=== PATIENT | female | born 1965 | race Caucasian/White ===

== ENCOUNTER 2016-11-17 10:38 | Emergency (ER) | payer OTHER, BC ==
[~2016-11-17] VITALS: Ht 175.3 cm; Wt 152.0 kg
[~2016-11-17 10:38] MED LIST: ACTOS15 MG PO; ALDACTONE50 MG PO; ANCEF,KEFZ1 GM/50 ML IV; ANCEF,KEFZ2 GM/100 M IV; ASACOL400 MG PO; Buspar PO; COZAAR100 MG PO; CRANBERRY500 M2 PO; CYSTEX TABLET1 EAC1 PO; ESTRING1 EACH VG; FEMRING1 EACH VG; FENOFIBRATE145 M1 PO; GABAPENTIN300 MG PO; GLUCOPHAGE1000 MG PO; Glucophage XR,Fortam PO; HUMALOG100 UNIT/1 SC; HUMULIN R500 UNITS/ SC; HYZAAR 100-21 TABLET PO; LANTUS 3 M100 UNITS1 SC; LASIX40 MG PO; LEVOTHROID200 MCG PO; LEVOTHYROXINE175 MCG PO; LEXAPRO20 MG PO; LOPRESSOR100 M1 PO; LOPRESSOR50 MG PO; LOSARTAN-HCTZ PO; LOSARTAN-HCTZ1 EAC1 PO; Levothroid,Synthroid PO; Lopressor PO; METOPROLOL TAR100 MG PO; NEURONTIN100 MG PO; NEURONTIN300 MG PO; NORCO 5/3251 TABLET PO; NOVOLOG 70/30 SQ; OMEPRAZOLE DR; PRED FORTE100 DROP/5 RIGHT EYE; PREDNISOLONE AC15 ML RIGHT EYE; PROAIR HFA8.5 GM IH; PROTONIX40 MG PO; SPIRONOLACTONE100 MG PO; SYNTHROID175 MCG PO; TRICOR145 MG PO; TRICOR48 MG PO; VALTREX50 MG/ML PO; VENTOLIN HFA18 GM IH; VITAMIN D5000 UNIT PO; Victoza SC; Vitamin D PO
[2016-11-17 11:14] LABS: POINT-OF-CARE METER ID UU13113778
[2016-11-17 11:49] LABS: EOSINOPHIL (%) 2.2 % (0-5); EOSINOPHIL COUNT 0.2 K/uL (0-0.3); HEMATOCRIT 39.8 % (36.0-46.0); IMMATURE GRANULOCYTE (%) 0.3 % (0.0-0.7); IMMATURE GRANULOCYTE COUNT 0.3 K/uL; LYMPHOCYTE COUNT 1.8 K/uL (1.0-2.8); MCH 28.6 PG (29.0-34.0); MCHC 34.7 G/DL (30.0-36.0); MCV 82.6 FL (83-99); MEAN PLAT.VOLUME 11.8 uM^3 (9.5-12.4); MONOCYTE (%) 6.3 % (3-12); MONOCYTE COUNT 0.6 K/uL (0-0.8); NEUTROPHIL (%) 71.2 % (45-76); NEUTROPHIL COUNT 6.5 K/uL (1.8-6.4); PLATELET COUNT 238 K/uL (156-360); RBC DIS.WIDTH-CV 14.6 % (11.8-14.6); RBC DIS.WIDTH-SD 42.8 % (39-53); RED BLOOD COUNT 4.82 M/uL (3.80-5.20); WHITE BLOOD COUNT 9.1 K/uL (4.1-10.2)
[2016-11-17 11:53] LABS: CARBON DIOXIDE (BICARBONATE) 32.9 MEQ/L (20-31)
[2016-11-17 12:15] LABS: ANION GAP 8 MEQ/L (2-14); CHLORIDE 97 MEQ/L (99-109); DIRECT BILIRUBIN 0.2 mg/dL (0.0-0.3); POTASSIUM 4.1 MEQ/L (3.7-5.4); SAMPLE HEMOLYSIS CHECK 0; SAMPLE ICTERIC CHECK 0; SAMPLE LIPEMIA CHECK 0; SODIUM 136 MEQ/L (136-147); TOTAL BILIRUBIN 0.7 MG/DL (0.0-1.0)
[2016-11-17 12:21] LABS: ALKALINE PHOSPHATASE 53 IU/L (3-129); GFR ESTIMATE (CALCULATED) 55 mL/min/; GLUCOSE 260 mg/dL (70-99); LIPASE 78 U/L (1.0-51.0); UREA NITROGEN (BUN) 28 mg/dL (9-23)
[2016-11-17 12:24] LABS: ADD MIUA? YES; BILIRUBIN NEGATIVE; BLOOD NEGATIVE; COLOR YELLOW ((YELLOW)); GLUCOSE (STRIP) >=500; KETONES NEGATIVE; LEUKOCYTES TRACE; NITRITE NEGATIVE; PROTEIN (STRIP) NEGATIVE; UROBILINOGEN 0.2 MG/DL (0.2-1.0)
[2016-11-17 12:32] LABS: AMPHETAMINE NEGATIVE (500 ng/mL); BACTERIA RARE /HPF; BARBITURATES NEGATIVE (200 ng/mL); BENZODIAZEPINES NEGATIVE (150 ng/mL); COCAINE NEGATIVE (150 ng/mL); EPITHELIAL CELLS 1+ /HPF; INTERNAL CONTROLS VALID? YES; METHADONE NEGATIVE (200 ng/mL); METHAMPHETAMINE NEGATIVE (500 ng/mL); MUCUS TRACE /LPF; OPIATES (MORPHINE) NEGATIVE (100 ng/mL); OXYCODONE NEGATIVE (100 ng/mL); PHENCYCLIDINE NEGATIVE (25 ng/mL); PROPOXYPHENE NEGATIVE (300 ng/mL); RED BLOOD CELLS NONE SEEN /HPF (0-5); THC CANNABINOIDS NEGATIVE (50 ng/mL); TRICYCLIC ANTIDEPRESSANTS NEGATIVE (300 ng/mL); UCUL ADDED? NO
[2016-11-17] MEDS ORDERED: ZOFRAN4 MG PO (12:50)
[2016-11-17 14:00] LABS: POINT-OF-CARE METER ID UU14100415
[2016-11-17 14:12] VITALS: BP 125/80
== END 2016-11-17 14:12 | disposition home or self-care (01) ==
LOC: EME 10:38
PROVIDERS: Emergency Medicine
DX: E86.0 Dehydration (principal); R11.10 Vomiting, unspecified; E11.65 Type 2 diabetes mellitus with hyperglycemia; I10 Essential (primary) hypertension; E03.9 Hypothyroidism, unspecified; N28.9 Disorder of kidney and ureter, unspecified; Z88.1 Allergy status to other antibiotic agents; Z88.6 Allergy status to analgesic agent; Z88.0 Allergy status to penicillin; Z91.041 Radiographic dye allergy status
CPT/HCPCS: 80048; 80076; 81003; 82803; 82948; 83690; 85025; 99281; 99285; J7030

== ENCOUNTER → 2016-12-16 | Outpatient (CLI) | payer OTHER, BC ==
[~2016-12-16] VITALS: Ht 176.5 cm; Wt 146.5 kg
[~2016-12-16] MED LIST changes: +COZAAR50 MG PO; +ELAVIL25 MG PO; +HUMALOG KW200 UNIT/1 SC; +JARDIANCE25 MG PO; +TRESIBA FL200 UNIT/1 SC; +ZOFRAN4 MG PO
[2016-12-16 07:50] LABS: POINT-OF-CARE METER ID UU13113694
== END | disposition home or self-care (01) ==
LOC: AMB 11-18 07:30
PROVIDERS: Internal Medicine
DX: K63.3 Ulcer of intestine (principal); D17.5 Benign lipomatous neoplasm of intra-abdominal organs; K64.8 Other hemorrhoids; K62.5 Hemorrhage of anus and rectum; E11.9 Type 2 diabetes mellitus without complications; I10 Essential (primary) hypertension
CPT/HCPCS: 82948; 88305; 93005; J2250

== ENCOUNTER 2017-04-30 19:09 | Inpatient (IN) | payer OTHER, BC ==
[~2017-04-30] VITALS: Ht 176.5 cm; Wt 159.2 kg
[~2017-04-30 19:09] MED LIST changes: +ALDACTONE100 MG PO
[2017-04-30 19:41] LABS: HEMATOCRIT 37.7 % (36.0-46.0); MCH 28.1 PG (29.0-34.0); MCHC 32.9 G/DL (30.0-36.0); MCV 85.3 FL (83-99); MEAN PLAT.VOLUME 11.8 uM^3 (9.5-12.4); PLATELET COUNT 147 K/uL (156-360); RBC DIS.WIDTH-CV 14.8 % (11.8-14.6); RBC DIS.WIDTH-SD 46.5 % (39-53); RED BLOOD COUNT 4.42 M/uL (3.80-5.20); WHITE BLOOD COUNT 14.7 K/uL (4.1-10.2)
[2017-04-30 19:49] LABS: CHLORIDE 92 mEq/L (99-109); POTASSIUM 3.7 mEq/L (3.7-5.4); SODIUM 132 mEq/L (136-147)
[2017-04-30 19:52] LABS: GLUCOSE 249 mg/dL (70-99)
[2017-04-30 19:53] LABS: ANION GAP 14 MEQ/L (2-14)
[2017-04-30 19:54] LABS: TOTAL BILIRUBIN 1.6 mg/dL (0.0-1.0)
[2017-04-30 19:55] LABS: ALKALINE PHOSPHATASE 55 IU/L (3-129); GFR ESTIMATE (CALCULATED) 39 mL/min/
[2017-04-30 19:56] LABS: UREA NITROGEN (BUN) 21 mg/dL (9-23)
[2017-04-30] MEDS ORDERED: ESTRING1 EACH VG (21:41)
[2017-05-01] VITALS (8 sets, daily range): BP systolic 102–126; BP diastolic 49–69
[2017-05-01 05:25] LABS: HEMATOCRIT 34.4 % (36.0-46.0); MCH 28.7 PG (29.0-34.0); MCHC 33.4 G/DL (30.0-36.0); MCV 85.8 FL (83-99); RBC DIS.WIDTH-CV 15.3 % (11.8-14.6); RBC DIS.WIDTH-SD 48.3 % (39-53); RED BLOOD COUNT 4.01 M/uL (3.80-5.20); WHITE BLOOD COUNT 11.7 K/uL (4.1-10.2)
[2017-05-01 05:51] LABS: ANION GAP 12 MEQ/L (2-14); CHLORIDE 98 MEQ/L (99-109); GFR ESTIMATE (CALCULATED) 39 mL/min/; POTASSIUM 3.2 MEQ/L (3.7-5.4); SAMPLE HEMOLYSIS CHECK 0; SAMPLE ICTERIC CHECK 0; SAMPLE LIPEMIA CHECK 0; SODIUM 135 MEQ/L (136-147); UREA NITROGEN (BUN) 25 mg/dL (9-23)
[2017-05-01 06:16] LABS: GLUCOSE 112 mg/dL (70-99)
[2017-05-01 07:18] LABS: ABS NEUTROPHIL COUNT 10.9; ANISOCYTOSIS 1+; EOSINOPHIL ABS CT 0; INSTRUMENT ABS NEUTROPHIL CT 10.6 K/uL; MEAN PLAT.VOLUME ND uM^3 (9.5-12.4); PLAT.SUFFICIENCY ADEQUATE; PLATELET CLUMPS PRESENT - PLATELET COUNT APPEARS ADQ.
[2017-05-01 08:55] LABS: MAGNESIUM 1.3 mg/dl (1.3-2.7)
[2017-05-01 10:53] LABS: ADD MIUA? YES; BILIRUBIN NEGATIVE; BLOOD LARGE; COLOR AMBER ((YELLOW)); GLUCOSE (STRIP) >=500; KETONES NEGATIVE; LEUKOCYTES MODERATE; NITRITE NEGATIVE; PROTEIN (STRIP) 100; SPECIFIC GRAVITY 1.023 (1.000-1.030)
[2017-05-01 11:10] LABS: BACTERIA 3+ /HPF; CASTS NONE SEEN /LPF; CRYSTALS NONE SEEN; EPITHELIAL CELLS 3+ /HPF; MUCUS RARE /LPF; WHITE BLOOD CELLS TNTC /HPF (0-5)
[2017-05-01 11:30] LABS: POINT-OF-CARE METER ID UU13113698
[2017-05-01 20:56] LABS: POINT-OF-CARE METER ID UU13113698
[2017-05-02 03:17] VITALS: BP 127/69
[2017-05-02 05:29] LABS: MCH 27.4 PG (29.0-34.0); MCHC 32.4 G/DL (30.0-36.0); MCV 84.4 FL (83-99); MEAN PLAT.VOLUME 12.4 uM^3 (9.5-12.4); PLATELET COUNT 131 K/uL (156-360); RBC DIS.WIDTH-SD 46.4 % (39-53); RED BLOOD COUNT 3.91 M/uL (3.80-5.20); WHITE BLOOD COUNT 8.8 K/uL (4.1-10.2)
[2017-05-02 06:06] LABS: ANION GAP 10 MEQ/L (2-14); CHLORIDE 100 MEQ/L (99-109); GFR ESTIMATE (CALCULATED) 55 mL/min/; POTASSIUM 3.5 MEQ/L (3.7-5.4); SAMPLE HEMOLYSIS CHECK 0; SAMPLE ICTERIC CHECK 0; SAMPLE LIPEMIA CHECK 0; SODIUM 136 MEQ/L (136-147); UREA NITROGEN (BUN) 29 mg/dL (9-23)
[2017-05-02 06:07] LABS: GLUCOSE 77 mg/dL (70-99)
[2017-05-02 08:05] LABS: POINT-OF-CARE METER ID UU13113781
[2017-05-02 08:30] VITALS: BP 143/69
[2017-05-02 11:38] VITALS: BP 144/76
[2017-05-02 12:08] LABS: POINT-OF-CARE METER ID UU13113781
[2017-05-02 15:38] VITALS: BP 145/70
[2017-05-02 16:34] LABS: POINT-OF-CARE METER ID UU13113781
[2017-05-02 19:08] VITALS: BP 129/74
[2017-05-03] VITALS (7 sets, daily range): BP systolic 104–139; BP diastolic 60–76
[2017-05-03 05:47] LABS: BASOPHIL COUNT 0.1 K/uL (0-0.1); EOSINOPHIL (%) 0.2 % (0-5); HEMATOCRIT 34.7 % (36.0-46.0); IMMATURE GRANULOCYTE (%) 1.3 % (0.0-0.7); IMMATURE GRANULOCYTE COUNT 0.3 K/uL; LYMPHOCYTE COUNT 1.1 K/uL (1.0-2.8); MCH 27.4 PG (29.0-34.0); MCHC 31.7 G/DL (30.0-36.0); MCV 86.3 FL (83-99); MEAN PLAT.VOLUME 12.5 uM^3 (9.5-12.4); MONOCYTE (%) 4.4 % (3-12); MONOCYTE COUNT 0.9 K/uL (0-0.8); NEUTROPHIL (%) 88.1 % (45-76); PLATELET COUNT 131 K/uL (156-360); RBC DIS.WIDTH-CV 15.1 % (11.8-14.6); RBC DIS.WIDTH-SD 48.2 % (39-53); RED BLOOD COUNT 4.02 M/uL (3.80-5.20); WHITE BLOOD COUNT 19.4 K/uL (4.1-10.2)
[2017-05-03 06:19] LABS: ANION GAP 9 MEQ/L (2-14); CHLORIDE 98 MEQ/L (99-109); GFR ESTIMATE (CALCULATED) > 59 mL/min/; GLUCOSE 181 mg/dL (70-99); POTASSIUM 4.9 MEQ/L (3.7-5.4); SAMPLE HEMOLYSIS CHECK 0; SAMPLE ICTERIC CHECK 0; SAMPLE LIPEMIA CHECK 0; SODIUM 132 MEQ/L (136-147); UREA NITROGEN (BUN) 26 mg/dL (9-23)
[2017-05-03 11:43] LABS: POINT-OF-CARE METER ID UU13113803
[2017-05-03 16:38] LABS: POINT-OF-CARE METER ID UU13113803
[2017-05-04 04:28] VITALS: BP 139/77
[2017-05-04 07:13] LABS: POINT-OF-CARE METER ID UU13113803
[2017-05-04 08:21] LABS: POINT-OF-CARE USER ID ENVKC36
[2017-05-04 08:46] LABS: MCH 28.3 PG (29.0-34.0); MCHC 31.9 G/DL (30.0-36.0); MCV 88.7 FL (83-99); MEAN PLAT.VOLUME 12.1 uM^3 (9.5-12.4); NRBC (%) 0.1 /100 WBC (0-0); PLATELET COUNT 163 K/uL (156-360); RBC DIS.WIDTH-CV 15.6 % (11.8-14.6); RBC DIS.WIDTH-SD 50.8 % (39-53); RED BLOOD COUNT 4.17 M/uL (3.80-5.20); WHITE BLOOD COUNT 25.1 K/uL (4.1-10.2)
[2017-05-04 09:00] VITALS: BP 145/67
[2017-05-04 09:14] LABS: ANION GAP 8 MEQ/L (2-14); CHLORIDE 95 MEQ/L (99-109); GFR ESTIMATE (CALCULATED) 55 mL/min/; GLUCOSE 130 mg/dL (70-99); POTASSIUM 5.3 MEQ/L (3.7-5.4); SAMPLE HEMOLYSIS CHECK 0; SAMPLE ICTERIC CHECK 0; SAMPLE LIPEMIA CHECK 0; SODIUM 134 MEQ/L (136-147); UREA NITROGEN (BUN) 26 mg/dL (9-23)
[2017-05-04 09:23] LABS: MAGNESIUM 2.2 mg/dl (1.3-2.7)
[2017-05-04 09:28] LABS: COMMENTS - BLOOD GASES A+C+; DEVICE NC; O2 FLOW 4 L/MIN; PCO2 66 mm Hg (35-45); SITE RR; pH 7.27 (7.35-7.45)
[2017-05-04 09:29] LABS: BASE EXCESS 1.9 mEq/L (-3 to +3); BICARBONATE 30.3 mEq/L (22-26); CARBOXY HGB 1.6 % (0-5); HEMOGLOBIN 12 (11.9-15.5); METHEMOGLOBIN 0.6 % (0-1.5); PO2 72 mm Hg (80-100)
[2017-05-04 10:10] LABS: ABS NEUTROPHIL COUNT 22.6; EOSINOPHIL ABS CT 0.3; INSTRUMENT ABS NEUTROPHIL CT 20.8 K/uL
[2017-05-04 11:50] LABS: POINT-OF-CARE METER ID UU13113698; POINT-OF-CARE USER ID ENVKC36
[2017-05-04 12:00] VITALS: BP 131/70
[2017-05-04 12:00] LABS: ADD MIUA? YES; BILIRUBIN NEGATIVE; BLOOD SMALL; GLUCOSE (STRIP) NEGATIVE; KETONES NEGATIVE; LEUKOCYTES SMALL; NITRITE NEGATIVE; PROTEIN (STRIP) 30; SPECIFIC GRAVITY 1.014 (1.000-1.030)
[2017-05-04 12:07] LABS: COLOR DK YELLOW ((YELLOW))
[2017-05-04 12:21] LABS: BACTERIA 1+ /HPF; BUDDING YEAST 1+; EPITHELIAL CELLS RARE /HPF; HYALINE CASTS 20-30 /LPF; MUCUS TRACE /LPF; UCUL ADDED? YES; WHITE BLOOD CELLS 20-30 /HPF (0-5)
[2017-05-04 17:00] VITALS: BP 137/69
[2017-05-04 17:00] LABS: POINT-OF-CARE USER ID ENVKC36
[2017-05-04 19:55] VITALS: BP 128/60
[2017-05-04 19:55] LABS: POINT-OF-CARE METER ID UU13113803
[2017-05-04 21:58] LABS: MCV 87.1 FL (83-99)
[2017-05-04 22:31] LABS: BASE EXCESS 4.7 mEq/L (-3 to +3); BICARBONATE 31.4 mEq/L (22-26); CARBOXY HGB 2.7 % (0-5); COMMENTS - BLOOD GASES C+; METHEMOGLOBIN 1.2 % (0-1.5); O2 FLOW 3 L/MIN; PCO2 61 mm Hg (35-45); PO2 51 mm Hg (80-100); SITE RR; pH 7.32 (7.35-7.45)
[2017-05-04 22:32] LABS: DEVICE NC
[2017-05-04 22:38] VITALS: BP 111/57
[2017-05-05 02:49] VITALS: BP 139/65
[2017-05-05 04:45] LABS: HEMATOCRIT 33.7 % (36.0-46.0); MCV 86.2 FL (83-99)
[2017-05-05 08:00] VITALS: BP 123/58
[2017-05-05 08:01] LABS: POINT-OF-CARE METER ID UU13113803; POINT-OF-CARE USER ID NUTSLF44
[2017-05-05 08:47] LABS: BASE EXCESS 4.9 mEq/L (-3 to +3); BICARBONATE 31.2 mEq/L (22-26); CARBOXY HGB 1.5 % (0-5); METHEMOGLOBIN 0.9 % (0-1.5); pH 7.37 (7.35-7.45)
[2017-05-05 08:48] LABS: COMMENTS - BLOOD GASES C+; DEVICE NC; O2 FLOW 2 L/MIN; PCO2 54 mm Hg (35-45); PO2 65 mm Hg (80-100); SITE RR; TOTAL RESP RATE 24 resp/min
[2017-05-05 11:35] LABS: POINT-OF-CARE METER ID UU13113698
[2017-05-05 12:00] VITALS: BP 132/62
[2017-05-05 17:19] LABS: POINT-OF-CARE METER ID UU13113698; POINT-OF-CARE USER ID NUTSLF44
[2017-05-05 19:00] VITALS: BP 120/65
[2017-05-05 19:18] VITALS: BP 144/65
[2017-05-05 21:06] LABS: POINT-OF-CARE METER ID UU13113803
[2017-05-05 23:10] VITALS: BP 134/68
[2017-05-06 02:55] VITALS: BP 134/61
[2017-05-06 03:00] VITALS: BP 139/75
[2017-05-06 06:28] LABS: HEMATOCRIT 38.1 % (36.0-46.0); MCH 27.2 PG (29.0-34.0); MCHC 31.2 G/DL (30.0-36.0); MCV 87.2 FL (83-99); MEAN PLAT.VOLUME 11.5 uM^3 (9.5-12.4); NRBC (%) 0.2 /100 WBC (0-0); RBC DIS.WIDTH-CV 14.8 % (11.8-14.6); RBC DIS.WIDTH-SD 47.6 % (39-53); RED BLOOD COUNT 4.37 M/uL (3.80-5.20); WHITE BLOOD COUNT 16.5 K/uL (4.1-10.2)
[2017-05-06 06:47] LABS: ANION GAP 11 MEQ/L (2-14); CHLORIDE 99 MEQ/L (99-109); POTASSIUM 5.9 MEQ/L (3.7-5.4); SAMPLE HEMOLYSIS CHECK 1; SAMPLE ICTERIC CHECK 0; SAMPLE LIPEMIA CHECK 0; SODIUM 137 MEQ/L (136-147)
[2017-05-06 06:49] LABS: PLATELET COUNT 231 K/uL (156-360)
[2017-05-06 07:07] LABS: ABS NEUTROPHIL COUNT 13.5; ANISOCYTOSIS 1+; BAND NEUTROPHILS 1.7 % (0-8.0); EOSINOPHIL ABS CT 0; INSTRUMENT ABS NEUTROPHIL CT 12.3 K/uL; LYMPHOCYTES 6.9 % (15.0-45.0); METAMYELOCYTES 2.6 %; MYELOCYTES 5.2 %; NUCLEATED RBC'S 0.9; PLAT.SUFFICIENCY ADEQUATE; SEG.NEUTROPHILS 80.2 % (46.0-76.0)
[2017-05-06 07:12] LABS: GFR ESTIMATE (CALCULATED) > 59 mL/min/; UREA NITROGEN (BUN) 36 mg/dL (9-23)
[2017-05-06 07:13] LABS: GLUCOSE 230 mg/dL (70-99)
[2017-05-06 07:18] VITALS: BP 160/73
[2017-05-06 08:32] LABS: POINT-OF-CARE METER ID UU13113781; POINT-OF-CARE USER ID ENVKC36
[2017-05-06 12:06] VITALS: BP 136/59
[2017-05-06 12:15] LABS: POINT-OF-CARE METER ID UU13113781; POINT-OF-CARE USER ID ENVKC36
[2017-05-06 16:43] LABS: POINT-OF-CARE METER ID UU13113803; POINT-OF-CARE USER ID ENVKC36
[2017-05-07] VITALS (7 sets, daily range): BP systolic 130–167; BP diastolic 65–74
[2017-05-07 08:06] LABS: POINT-OF-CARE METER ID UU13113698
[2017-05-07 11:25] LABS: POINT-OF-CARE METER ID UU13113698
[2017-05-07 16:25] LABS: POINT-OF-CARE METER ID UU13113698
[2017-05-08 03:35] VITALS: BP 176/79
[2017-05-08 05:56] LABS: HEMATOCRIT 35.8 % (36.0-46.0); MCH 27.3 PG (29.0-34.0); NRBC (%) 0.1 /100 WBC (0-0); RBC DIS.WIDTH-CV 14.6 % (11.8-14.6); RBC DIS.WIDTH-SD 46.5 % (39-53); RED BLOOD COUNT 4.07 M/uL (3.80-5.20)
[2017-05-08 06:25] LABS: ABS NEUTROPHIL COUNT 14.3; BAND NEUTROPHILS 0.9 % (0-8.0); EOSINOPHIL ABS CT 0; HEMATOLOGY COMMENT 1 SN; INSTRUMENT ABS NEUTROPHIL CT 13.8 K/uL; LYMPHOCYTES 11.5 % (15.0-45.0); METAMYELOCYTES 0.9 %; MICROCYTOSIS 1+; MYELOCYTES 3.5 %; PLAT.SUFFICIENCY ADEQUATE; PLATELET CLUMPS PRESENT - PLATELET COUNT APPEARS ADQ.; PLATELET COUNT UNABLE TO REPORT K/uL (156-360); POLYCHROMASIA 1+; SEG.NEUTROPHILS 74.4 % (46.0-76.0)
[2017-05-08 07:18] VITALS: BP 151/74
[2017-05-08 07:20] LABS: ANION GAP 6 MEQ/L (2-14); CHLORIDE 98 MEQ/L (99-109); GFR ESTIMATE (CALCULATED) > 59 mL/min/; GLUCOSE 251 mg/dL (70-99); POTASSIUM 4.9 MEQ/L (3.7-5.4); SAMPLE HEMOLYSIS CHECK 0; SAMPLE ICTERIC CHECK 0; SAMPLE LIPEMIA CHECK 0; SODIUM 140 MEQ/L (136-147); UREA NITROGEN (BUN) 44 mg/dL (9-23); VANCOMYCIN, TROUGH 14.1 MCG/ML (10-20)
[2017-05-08 07:59] LABS: POINT-OF-CARE USER ID NUTSLF44
[2017-05-08 11:36] VITALS: BP 131/63
[2017-05-08 12:13] LABS: POINT-OF-CARE USER ID NUTSLF44
[2017-05-08 12:59] LABS: POINT-OF-CARE METER ID UU13113781
[2017-05-08 18:46] LABS: POINT-OF-CARE USER ID NUTSLF44
[2017-05-08 19:15] VITALS: BP 143/69
[2017-05-08 23:51] VITALS: BP 133/63
[2017-05-09 04:00] VITALS: BP 119/58
[2017-05-09 05:25] LABS: HEMATOCRIT 33.9 % (36.0-46.0); MCH 28.4 PG (29.0-34.0); MCHC 32.4 G/DL (30.0-36.0); MCV 87.4 FL (83-99); MEAN PLAT.VOLUME 10.8 uM^3 (9.5-12.4); NRBC (%) 0.1 /100 WBC (0-0); PLATELET COUNT 317 K/uL (156-360); RBC DIS.WIDTH-CV 14.5 % (11.8-14.6); RBC DIS.WIDTH-SD 45.7 % (39-53); RED BLOOD COUNT 3.88 M/uL (3.80-5.20); WHITE BLOOD COUNT 17.7 K/uL (4.1-10.2)
[2017-05-09 05:53] LABS: ALKALINE PHOSPHATASE 69 IU/L (3-129); ANION GAP 6 MEQ/L (2-14); CHLORIDE 97 MEQ/L (99-109); GFR ESTIMATE (CALCULATED) > 59 mL/min/; GLUCOSE 172 mg/dL (70-99); POTASSIUM 5.1 MEQ/L (3.7-5.4); SAMPLE HEMOLYSIS CHECK 0; SAMPLE ICTERIC CHECK 0; SAMPLE LIPEMIA CHECK 0; SODIUM 141 MEQ/L (136-147); TOTAL BILIRUBIN 0.4 MG/DL (0.0-1.0); UREA NITROGEN (BUN) 39 mg/dL (9-23)
[2017-05-09 05:54] LABS: FASTING STATUS A
[2017-05-09 06:09] LABS: ABS NEUTROPHIL COUNT 15.2; ANISOCYTOSIS 2+; ATYPICAL LYMPHOCYTE 1.7 %; BAND NEUTROPHILS 0.9 % (0-8.0); EOSINOPHIL ABS CT 0; INSTRUMENT ABS NEUTROPHIL CT 13.4 K/uL; LYMPHOCYTES 8.8 % (15.0-45.0); METAMYELOCYTES 0.9 %; PLAT.SUFFICIENCY ADEQUATE; POLYCHROMASIA 2+; SEG.NEUTROPHILS 85.1 % (46.0-76.0)
[2017-05-09 07:16] VITALS: BP 145/76
[2017-05-09 11:03] VITALS: BP 130/74
[2017-05-09 15:23] VITALS: BP 117/55
[2017-05-09 20:22] VITALS: BP 158/91
[2017-05-09 23:25] VITALS: BP 139/67
[2017-05-10 04:39] VITALS: BP 140/72
[2017-05-10 05:22] LABS: HEMATOCRIT 36.7 % (36.0-46.0); MCH 27.8 PG (29.0-34.0); MCHC 31.9 G/DL (30.0-36.0); MCV 87.2 FL (83-99); MEAN PLAT.VOLUME 10.6 uM^3 (9.5-12.4); PLATELET COUNT 287 K/uL (156-360); RBC DIS.WIDTH-CV 14.6 % (11.8-14.6); RBC DIS.WIDTH-SD 45.5 % (39-53); RED BLOOD COUNT 4.21 M/uL (3.80-5.20); WHITE BLOOD COUNT 14.2 K/uL (4.1-10.2)
[2017-05-10 05:56] LABS: ABS NEUTROPHIL COUNT 10.2; ANISOCYTOSIS 1+; ATYPICAL LYMPHOCYTE 5.3 %; BAND NEUTROPHILS 0.9 % (0-8.0); EOSINOPHIL ABS CT 0.1; EOSINOPHILS 0.9 % (0-5.0); INSTRUMENT ABS NEUTROPHIL CT 10.1 K/uL; LYMPHOCYTES 18.6 % (15.0-45.0); PLAT.SUFFICIENCY ADEQUATE; POLYCHROMASIA 1+; SEG.NEUTROPHILS 70.8 % (46.0-76.0)
[2017-05-10 05:58] LABS: ALKALINE PHOSPHATASE 73 IU/L (3-129); ANION GAP 6 MEQ/L (2-14); CHLORIDE 94 MEQ/L (99-109); GFR ESTIMATE (CALCULATED) > 59 mL/min/; GLUCOSE 178 mg/dL (70-99); POTASSIUM 4.8 MEQ/L (3.7-5.4); SAMPLE HEMOLYSIS CHECK 2; SAMPLE ICTERIC CHECK 0; SAMPLE LIPEMIA CHECK 0; SODIUM 137 MEQ/L (136-147); UREA NITROGEN (BUN) 32 mg/dL (9-23)
[2017-05-10 05:59] LABS: MAGNESIUM 1.6 mg/dl (1.3-2.7); TOTAL BILIRUBIN 0.5 MG/DL (0.0-1.0)
[2017-05-10 06:54] LABS: Estimated Average Glucose 197 mg/dL (70-123); HEMOGLOBIN A1c (GLYCOHEMOGLOB) 8.5 % HGB (Below 5.7)
[2017-05-10 07:25] VITALS: BP 149/74
[2017-05-10 11:44] VITALS: BP 107/53
[2017-05-10] MEDS ORDERED: METRONIDAZOLE500 MG PO (14:47)
[2017-05-10] MEDS ORDERED: VANCOMYCIN HCL1 GM IV (14:47)
[2017-05-10] MEDS ORDERED: LOPRESSOR50 MG PO (14:47)
[2017-05-10] MEDS ORDERED: GUAIFENESIN WI120 M1 PO (14:48)
[2017-05-10] MEDS ORDERED: CEFAZOLIN-2 GM/100 M IV (14:49)
[2017-05-10 16:40] VITALS: BP 132/63
== END 2017-05-10 17:32 | DRG 853 ==
LOC: EME → EDBD 19:09 → 4EAST 22:14 → EDOF 22:14 → ENRESERV 22:15 → 4EAST 23:27 → ENPENDDIS 05-10 17:00 → 4EAST 05-10 17:32
PROVIDERS: Emergency Medicine; Hospitalist; Internal Medicine; Internal Medicine Pulmonary Disease; Nurse Practitioner Adult Health; Physician Assistant
PROC: 5A09357 Assistance with Respiratory Ventilation, Less than 24 Consecutive Hours, Continuous Positive Airway Pressure (ICD-10-PCS; 2017-05-04)
PROC: 0HBKXZZ Excision of Right Lower Leg Skin, External Approach (ICD-10-PCS; principal; 2017-05-08)
DX: A41.89 Other specified sepsis (principal); B96.7 Clostridium perfringens [C. perfringens] as the cause of diseases classified elsewhere; L03.115 Cellulitis of right lower limb; J96.22 Acute and chronic respiratory failure with hypercapnia; J96.21 Acute and chronic respiratory failure with hypoxia; J20.9 Acute bronchitis, unspecified; J45.901 Unspecified asthma with (acute) exacerbation; E11.21 Type 2 diabetes mellitus with diabetic nephropathy; E11.42 Type 2 diabetes mellitus with diabetic polyneuropathy; E83.42 Hypomagnesemia; E87.2 Acidosis; E87.5 Hyperkalemia; E87.6 Hypokalemia; E11.621 Type 2 diabetes mellitus with foot ulcer; L97.519 Non-pressure chronic ulcer of other part of right foot with unspecified severity; N39.0 Urinary tract infection, site not specified; E66.2 Morbid (severe) obesity with alveolar hypoventilation; Z68.42 Body mass index [BMI] 45.0-49.9, adult; I27.2 Other secondary pulmonary hypertension; I27.81 Cor pulmonale (chronic); I48.91 Unspecified atrial fibrillation; I10 Essential (primary) hypertension; M79.7 Fibromyalgia; I87.2 Venous insufficiency (chronic) (peripheral); I87.8 Other specified disorders of veins; E03.9 Hypothyroidism, unspecified; E28.2 Polycystic ovarian syndrome; H91.90 Unspecified hearing loss, unspecified ear; K21.9 Gastro-esophageal reflux disease without esophagitis; K51.911 Ulcerative colitis, unspecified with rectal bleeding; K64.9 Unspecified hemorrhoids; R31.0 Gross hematuria; R32 Unspecified urinary incontinence; R23.8 Other skin changes; D64.9 Anemia, unspecified; F32.9 Major depressive disorder, single episode, unspecified; G43.909 Migraine, unspecified, not intractable, without status migrainosus; G89.29 Other chronic pain; H57.11 Ocular pain, right eye; R60.0 Localized edema; Z89.429 Acquired absence of other toe(s), unspecified side
CPT/HCPCS: 36600; 70450; 71010; 72198; 73700; 76770; 76937; 80048; 80053; 80202; 81003; 82803; 82948; 83036; 83605; 83735; 83880; 85014; 85018; 85025; 85027; 86900; 86901; 87040; 87076; 87086; 87801; 93005; 93306; 93971; 94010; 94640; 94640 76; 94660; 94760; 94799; 97530 GP; 99202; 99281; 99285; A6260; J0690; J0692; J0696; J1650; J1815; J1885; J1940; J1956; J2060; J2930; J2997; J3370; J3475; J7030; J7050; J7120; J7512; S0030

== ENCOUNTER 2017-06-15 02:14 | Inpatient (IN) | payer OTHER, BC ==
[~2017-06-15] VITALS: Ht 177.8 cm; Wt 149.0 kg
[~2017-06-15 02:14] MED LIST changes: +CEFAZOLIN-2 GM/100 M IV; +GUAIFENESIN WI120 M1 PO; +METRONIDAZOLE500 MG PO; +VANCOMYCIN HCL1 GM IV
[2017-06-15 06:12] LABS: EOSINOPHIL (%) 0 % (0-5); HEMATOCRIT 30.8 % (36.0-46.0); IMMATURE GRANULOCYTE (%) 0.5 % (0.0-0.7); IMMATURE GRANULOCYTE COUNT 0.1 K/uL; INSTRUMENT ABS NEUTROPHIL CT 10.8 K/uL; LYMPHOCYTE COUNT 1.2 K/uL (1.0-2.8); MCH 27.5 PG (29.0-34.0); MCHC 32.5 G/DL (30.0-36.0); MCV 84.6 FL (83-99); MONOCYTE (%) 7.4 % (3-12); NEUTROPHIL (%) 82.9 % (45-76); NEUTROPHIL COUNT 10.8 K/uL (1.8-6.4); RBC DIS.WIDTH-CV 16.2 % (11.8-14.6); RBC DIS.WIDTH-SD 50.1 % (39-53); RED BLOOD COUNT 3.64 M/uL (3.80-5.20)
[2017-06-15 06:15] LABS: INTER. NORMALIZED RATIO 1.5; PROTHROMBIN TIME 16.6 SEC (10.2-12.9)
[2017-06-15 06:18] LABS: CHLORIDE 93 mEq/L (99-109); POTASSIUM 3.6 mEq/L (3.7-5.4); PTT 29.9 SEC (25-37); SODIUM 133 mEq/L (136-147)
[2017-06-15 06:20] LABS: GLUCOSE 152 mg/dL (70-99)
[2017-06-15 06:21] LABS: ANION GAP 14 MEQ/L (2-14)
[2017-06-15 06:22] LABS: TOTAL BILIRUBIN 0.9 mg/dL (0.0-1.0)
[2017-06-15 06:23] LABS: ALKALINE PHOSPHATASE 53 IU/L (3-129)
[2017-06-15 06:24] LABS: GFR ESTIMATE (CALCULATED) 39 mL/min/
[2017-06-15 06:25] LABS: UREA NITROGEN (BUN) 22 mg/dL (9-23)
[2017-06-15 06:27] LABS: LIPASE 75 U/L (1.0-51.0)
[2017-06-15 06:51] LABS: MEAN PLAT.VOLUME 10.6 uM^3 (9.5-12.4); PLAT.SUFFICIENCY ADEQUATE
[2017-06-15 07:07] LABS: PLATELET COUNT 193 K/uL (156-360)
[2017-06-15] MEDS ORDERED: COZAAR50 MG PO (08:43)
[2017-06-15] MEDS ORDERED: JARDIANCE25 MG PO (08:43)
[2017-06-15] MEDS ORDERED: ALDACTONE100 MG PO (08:43)
[2017-06-15] MEDS ORDERED: B-121000 MC2 PO (08:44)
[2017-06-15] MEDS ORDERED: VITAMIN D31000 UNI2 PO (08:44)
[2017-06-15 09:15] LABS: ADD MIUA? YES; BILIRUBIN NEGATIVE; BLOOD MODERATE; COLOR AMBER ((YELLOW)); GLUCOSE (STRIP) >=500; KETONES NEGATIVE; LEUKOCYTES LARGE; NITRITE NEGATIVE; PROTEIN (STRIP) 100; SPECIFIC GRAVITY 1.023 (1.000-1.030); UROBILINOGEN 0.2 MG/DL (0.2-1.0)
[2017-06-15 09:23] LABS: BACTERIA 1+ /HPF; EPITHELIAL CELLS 1+ /HPF; HYALINE CASTS 0-5 /LPF; MUCUS TRACE /LPF; RED BLOOD CELLS 15-20 /HPF (0-5); UCUL ADDED? YES; WHITE BLOOD CELLS TNTC /HPF (0-5)
[2017-06-15 10:21] VITALS: BP 114/58
[2017-06-15 10:25] VITALS: BP 114/58
[2017-06-15 11:16] LABS: POINT-OF-CARE METER ID UU13113698
[2017-06-15 12:32] VITALS: BP 135/67
[2017-06-15 16:08] LABS: POINT-OF-CARE METER ID UU13113698
[2017-06-15 17:15] VITALS: BP 145/69
[2017-06-15 20:00] VITALS: BP 145/81
[2017-06-15 21:02] LABS: POINT-OF-CARE METER ID UU13113698
[2017-06-15 23:55] VITALS: BP 99/57
[2017-06-16 04:00] VITALS: BP 163/80
[2017-06-16 05:58] LABS: EOSINOPHIL (%) 0.3 % (0-5); HEMATOCRIT 28.7 % (36.0-46.0); IMMATURE GRANULOCYTE (%) 0.6 % (0.0-0.7); IMMATURE GRANULOCYTE COUNT 0.1 K/uL; INSTRUMENT ABS NEUTROPHIL CT 7.1 K/uL; MCH 27.3 PG (29.0-34.0); MCHC 31.7 G/DL (30.0-36.0); MCV 86.2 FL (83-99); MONOCYTE (%) 9.4 % (3-12); MONOCYTE COUNT 0.8 K/uL (0-0.8); NEUTROPHIL COUNT 7.1 K/uL (1.8-6.4); PLATELET COUNT 158 K/uL (156-360); RBC DIS.WIDTH-CV 16.4 % (11.8-14.6); RBC DIS.WIDTH-SD 51.7 % (39-53); RED BLOOD COUNT 3.33 M/uL (3.80-5.20)
[2017-06-16 06:26] LABS: ANION GAP 7 MEQ/L (2-14); CHLORIDE 100 MEQ/L (99-109); GFR ESTIMATE (CALCULATED) 46 mL/min/; GLUCOSE 116 mg/dL (70-99); SAMPLE HEMOLYSIS CHECK 0; SAMPLE ICTERIC CHECK 0; SAMPLE LIPEMIA CHECK 0; SODIUM 134 MEQ/L (136-147); UREA NITROGEN (BUN) 21 mg/dL (9-23)
[2017-06-16 06:27] LABS: POTASSIUM 4.4 MEQ/L (3.7-5.4)
[2017-06-16 08:34] VITALS: BP 157/73
[2017-06-16 11:51] VITALS: BP 134/81
[2017-06-16 17:17] VITALS: BP 122/74
[2017-06-16 19:05] VITALS: BP 183/84
[2017-06-16 23:55] VITALS: BP 134/80
[2017-06-17 03:30] VITALS: BP 140/92
[2017-06-17 07:39] VITALS: BP 146/73
[2017-06-17 07:58] LABS: POINT-OF-CARE METER ID UU13113698; POINT-OF-CARE USER ID ENVKC36
[2017-06-17 11:21] LABS: POINT-OF-CARE METER ID UU13113698; POINT-OF-CARE USER ID ENVKC36
[2017-06-17 11:46] VITALS: BP 123/60
[2017-06-17 15:52] VITALS: BP 126/65
[2017-06-17 16:33] LABS: POINT-OF-CARE METER ID UU13113698
[2017-06-17 18:06] VITALS: BP 172/70
[2017-06-17 19:26] VITALS: BP 139/72
[2017-06-17 21:47] LABS: POINT-OF-CARE METER ID UU14162508
[2017-06-18 00:32] VITALS: BP 116/63
[2017-06-18 04:06] VITALS: BP 125/76
[2017-06-18 06:25] LABS: POINT-OF-CARE METER ID UU14208750
[2017-06-18 07:50] VITALS: BP 163/76
[2017-06-18 09:48] LABS: GFR ESTIMATE (CALCULATED) > 59 mL/min/
[2017-06-18 11:37] LABS: EOSINOPHIL COUNT 0.6 K/uL (0-0.3); HEMATOCRIT 29.5 % (36.0-46.0); IMMATURE GRANULOCYTE (%) 1.6 % (0.0-0.7); IMMATURE GRANULOCYTE COUNT 0.2 K/uL; INSTRUMENT ABS NEUTROPHIL CT 9.1 K/uL; LYMPHOCYTE COUNT 1.1 K/uL (1.0-2.8); MCH 27.5 PG (29.0-34.0); MCHC 31.2 G/DL (30.0-36.0); MCV 88.3 FL (83-99); MEAN PLAT.VOLUME 12.2 uM^3 (9.5-12.4); MONOCYTE (%) 5.2 % (3-12); MONOCYTE COUNT 0.6 K/uL (0-0.8); NEUTROPHIL (%) 78.1 % (45-76); NEUTROPHIL COUNT 9.1 K/uL (1.8-6.4); RBC DIS.WIDTH-CV 16.2 % (11.8-14.6); RBC DIS.WIDTH-SD 52.6 % (39-53); RED BLOOD COUNT 3.34 M/uL (3.80-5.20); WHITE BLOOD COUNT 11.6 K/uL (4.1-10.2)
[2017-06-18 11:44] LABS: POINT-OF-CARE METER ID UU14162508
[2017-06-18 11:45] LABS: ANION GAP 11 MEQ/L (2-14); CHLORIDE 101 MEQ/L (99-109); POTASSIUM 4.5 MEQ/L (3.7-5.4); SODIUM 139 MEQ/L (136-147)
[2017-06-18 12:16] LABS: PLATELET COUNT 216 K/uL (156-360)
[2017-06-18 12:33] LABS: GLUCOSE 212 mg/dL (70-99); UREA NITROGEN (BUN) 16 mg/dL (9-23); VANCOMYCIN, TROUGH 24.7 MCG/ML (10-20)
[2017-06-18 17:18] LABS: POINT-OF-CARE METER ID UU14208750
[2017-06-18 20:03] VITALS: BP 150/96
[2017-06-18 21:50] LABS: POINT-OF-CARE METER ID UU14208750
[2017-06-18 23:45] VITALS: BP 155/86
[2017-06-19 06:09] LABS: POINT-OF-CARE METER ID UU14208750
[2017-06-19 07:38] VITALS: BP 127/58
[2017-06-19 12:07] LABS: POINT-OF-CARE METER ID UU14208750
[2017-06-19 16:02] VITALS: BP 168/77
[2017-06-19 16:16] LABS: POINT-OF-CARE METER ID UU14162508
[2017-06-19 21:53] LABS: POINT-OF-CARE METER ID UU14162508
[2017-06-20 00:50] VITALS: BP 142/69
[2017-06-20 06:48] LABS: POINT-OF-CARE METER ID UU14162508
[2017-06-20 07:18] VITALS: BP 149/73
[2017-06-20 08:14] LABS: HEMATOCRIT 29.4 % (36.0-46.0); MCH 27.4 PG (29.0-34.0); MCHC 30.6 G/DL (30.0-36.0); MCV 89.4 FL (83-99); MEAN PLAT.VOLUME 11.3 uM^3 (9.5-12.4); PLATELET COUNT 241 K/uL (156-360); RBC DIS.WIDTH-CV 16.2 % (11.8-14.6); RBC DIS.WIDTH-SD 52.8 % (39-53); RED BLOOD COUNT 3.29 M/uL (3.80-5.20); WHITE BLOOD COUNT 8.9 K/uL (4.1-10.2)
[2017-06-20 08:39] LABS: ALKALINE PHOSPHATASE 62 IU/L (3-129); ANION GAP 5 MEQ/L (2-14); CHLORIDE 102 MEQ/L (99-109); GFR ESTIMATE (CALCULATED) > 59 mL/min/; GLUCOSE 212 mg/dL (70-99); POTASSIUM 4.9 MEQ/L (3.7-5.4); SAMPLE HEMOLYSIS CHECK 0; SAMPLE ICTERIC CHECK 0; SAMPLE LIPEMIA CHECK 0; SODIUM 142 MEQ/L (136-147); TOTAL BILIRUBIN 0.5 MG/DL (0.0-1.0); UREA NITROGEN (BUN) 15 mg/dL (9-23)
[2017-06-20 08:46] LABS: ANISOCYTOSIS 1+; ATYPICAL LYMPHOCYTE 0.9 %; EOSINOPHIL ABS CT 0.5; EOSINOPHILS 5.2 % (0-5.0); INSTRUMENT ABS NEUTROPHIL CT 6.3 K/uL; METAMYELOCYTES 1.7 %; MICROCYTOSIS 1+; MYELOCYTES 2.6 %; NUCLEATED RBC'S 0.9; PLAT.SUFFICIENCY ADEQUATE; POLYCHROMASIA 1+; SEG.NEUTROPHILS 78.3 % (46.0-76.0)
[2017-06-20] MEDS ORDERED: KEFLEX500 MG PO (08:48)
[2017-06-20] MEDS ORDERED: BACTRIM,SEPT1 TABLET PO (08:48)
[2017-06-20 11:56] LABS: POINT-OF-CARE METER ID UU14162508
== END 2017-06-20 13:27 | disposition home or self-care (01) | DRG 603 ==
LOC: EME 02:14 → EDOF 07:41 → 4EAST 07:41 → ENRESERV 07:54 → 4EAST 10:05 → ENRESERV 06-17 14:36 → 2EAST 06-17 17:54
PROVIDERS: Emergency Medicine; Hospitalist; Internal Medicine
DX: L03.115 Cellulitis of right lower limb (principal); N17.9 Acute kidney failure, unspecified; Z68.42 Body mass index [BMI] 45.0-49.9, adult; K51.90 Ulcerative colitis, unspecified, without complications; E11.42 Type 2 diabetes mellitus with diabetic polyneuropathy; F32.9 Major depressive disorder, single episode, unspecified; D64.9 Anemia, unspecified; M79.604 Pain in right leg; M79.7 Fibromyalgia; E06.3 Autoimmune thyroiditis; E11.621 Type 2 diabetes mellitus with foot ulcer; J45.20 Mild intermittent asthma, uncomplicated; I27.2 Other secondary pulmonary hypertension; G47.33 Obstructive sleep apnea (adult) (pediatric); K21.9 Gastro-esophageal reflux disease without esophagitis; I50.9 Heart failure, unspecified; H91.90 Unspecified hearing loss, unspecified ear; L97.519 Non-pressure chronic ulcer of other part of right foot with unspecified severity; I11.0 Hypertensive heart disease with heart failure; E66.01 Morbid (severe) obesity due to excess calories; I87.8 Other specified disorders of veins; I87.2 Venous insufficiency (chronic) (peripheral); Z79.4 Long term (current) use of insulin; Z88.0 Allergy status to penicillin; Z81.8 Family history of other mental and behavioral disorders; Z87.891 Personal history of nicotine dependence
CPT/HCPCS: 80048; 80048 91; 80053; 80202; 81003; 82565; 82948; 83605; 83690; 85025; 85610; 85730; 87040; 87086; 93971; 94640; 94640 76; 94799; 99202; 99281; 99285; C1753; J0690; J0692; J1644; J1815; J2405; J3370; J7030; J7050

== ENCOUNTER 2018-03-03 22:08 | Inpatient (IN) | payer OTHER, BC ==
[~2018-03-03] VITALS: Ht 180.3 cm; Wt 146.0 kg
[~2018-03-03 22:08] MED LIST changes: +B-121000 MC2 PO; +BACTRIM,SEPT1 TABLET PO; +JARDIANCE10 MG PO; +KEFLEX500 MG PO; +VITAMIN D31000 UNI2 PO
[2018-03-03 22:53] LABS: BASOPHIL (%) 0.2 % (0-1); EOSINOPHIL (%) 0 % (0-5); HEMATOCRIT 30.8 % (36.0-46.0); HEMOGLOBIN 10.6 G/DL (11.9-15.5); IMMATURE GRANULOCYTE (%) 2.7 % (0.0-0.7); LYMPHOCYTE (%) 0.6 % (15-42); LYMPHOCYTE COUNT 0.1 K/uL (1.0-2.8); MCHC 34.4 G/DL (30.0-36.0); MCV 84.4 FL (83-99); MONOCYTE COUNT 0.2 K/uL (0-0.8); NEUTROPHIL (%) 95.5 % (45-76); NEUTROPHIL COUNT 22.3 K/uL (1.8-6.4); PLATELET COUNT 163 K/uL (156-360); RBC DIS.WIDTH-CV 14.3 % (11.8-14.6); RBC DIS.WIDTH-SD 43.8 % (39-53); RED BLOOD COUNT 3.65 M/uL (3.80-5.20); WHITE BLOOD COUNT 23.4 K/uL (4.1-10.2)
[2018-03-03 22:58] LABS: INTER. NORMALIZED RATIO 1.3
[2018-03-03 23:02] LABS: ALBUMIN 3.1 g/dL (3.2-4.8); CHLORIDE 99 mEq/L (99-109); POTASSIUM 4.2 mEq/L (3.7-5.4); SODIUM 133 mEq/L (136-147)
[2018-03-03 23:04] LABS: GLUCOSE 251 mg/dL (70-99)
[2018-03-03 23:05] LABS: TOTAL PROTEIN 6.2 g/dL (6.4-8.3)
[2018-03-03 23:06] LABS: TOTAL BILIRUBIN 1.3 mg/dL (0.0-1.0)
[2018-03-03 23:08] LABS: ALKALINE PHOSPHATASE 38 IU/L (3-129); GFR ESTIMATE (CALCULATED) 28 mL/min/
[2018-03-03 23:09] LABS: UREA NITROGEN (BUN) 38 mg/dL (9-23)
[2018-03-03 23:10] LABS: AST (GOT) 18 IU/L (2-34)
[2018-03-03 23:11] LABS: ALT (GPT) 14 IU/L (3-49)
[2018-03-03 23:32] LABS: TROP-I INTERPRETATION NEGATIVE; TROPONIN-I 0.04 ng/mL (0.0-0.30)
[2018-03-04] MEDS ORDERED: LOPRESSOR100 M1 PO (00:03)
[2018-03-04] MEDS ORDERED: GABAPENTIN300 MG PO (00:03)
[2018-03-04] MEDS ORDERED: HYDROXYCHLOROQ200 MG PO (00:05)
[2018-03-04] MEDS ORDERED: SYSTANE BALANCE10 ML BOTH EYES (00:05)
[2018-03-04] MEDS ORDERED: HUMULIN R500 UNIT/1 SC (00:06)
[2018-03-04 04:03] VITALS: BP 116/59
[2018-03-04 05:58] LABS: BASOPHIL (%) 0.1 % (0-1); EOSINOPHIL (%) 0 % (0-5); HEMATOCRIT 30.4 % (36.0-46.0); IMMATURE GRANULOCYTE (%) 2.9 % (0.0-0.7); LYMPHOCYTE (%) 1.1 % (15-42); LYMPHOCYTE COUNT 0.2 K/uL (1.0-2.8); MCH 28.2 PG (29.0-34.0); MCHC 32.9 G/DL (30.0-36.0); MCV 85.6 FL (83-99); MONOCYTE (%) 1.1 % (3-12); MONOCYTE COUNT 0.2 K/uL (0-0.8); NEUTROPHIL (%) 94.8 % (45-76); NEUTROPHIL COUNT 20.6 K/uL (1.8-6.4); PLATELET COUNT 168 K/uL (156-360); RBC DIS.WIDTH-CV 14.6 % (11.8-14.6); RBC DIS.WIDTH-SD 45.2 % (39-53); RED BLOOD COUNT 3.55 M/uL (3.80-5.20); WHITE BLOOD COUNT 21.7 K/uL (4.1-10.2)
[2018-03-04 06:10] LABS: CHLORIDE 102 MEQ/L (99-109); GFR ESTIMATE (CALCULATED) 28 mL/min/; GLUCOSE 209 mg/dL (70-99); POTASSIUM 4.3 MEQ/L (3.7-5.4); SODIUM 134 MEQ/L (136-147); UREA NITROGEN (BUN) 43 mg/dL (9-23); VANCOMYCIN, TROUGH 16.7 MCG/ML (10-20)
[2018-03-04 07:59] VITALS: BP 108/54
[2018-03-04 08:14] LABS: THYROTROPIN (TSH) 1.1 MIU/L (0.4-5.5)
[2018-03-04 12:28] VITALS: BP 104/49
[2018-03-04 15:30] VITALS: BP 106/52
[2018-03-04 19:48] VITALS: BP 116/57
[2018-03-04 20:37] LABS: C DIFF TOXIN NEGATIVE (NEGATIVE)
[2018-03-04 23:55] VITALS: BP 134/56
[2018-03-05] VITALS (18 sets, daily range): BP systolic 71–151; BP diastolic 32–130
[2018-03-05 05:38] LABS: MCH 28.5 PG (29.0-34.0); MCHC 32.3 G/DL (30.0-36.0); MCV 88.3 FL (83-99); PLATELET COUNT 139 K/uL (156-360); RBC DIS.WIDTH-CV 15.1 % (11.8-14.6); RBC DIS.WIDTH-SD 49.1 % (39-53); RED BLOOD COUNT 3.51 M/uL (3.80-5.20); WHITE BLOOD COUNT 15.8 K/uL (4.1-10.2)
[2018-03-05 06:16] LABS: VANCOMYCIN, TROUGH 18.5 MCG/ML (10-20)
[2018-03-05 07:10] LABS: ABS NEUTROPHIL COUNT 15.1; ANISOCYTOSIS 1+; EOSINOPHIL ABS CT 0; METAMYELOCYTES 3.5 %; MICROCYTOSIS 1+; MONOCYTES 0.9 % (0-9.0); NUCLEATED RBC'S 0.9; PLAT.SUFFICIENCY ADEQUATE; SEG.NEUTROPHILS 74.6 % (46.0-76.0)
[2018-03-05 10:27] LABS: COMMENTS - BLOOD GASES A+C+; DEVICE NC; O2 FLOW 4 L/MIN; SITE RR; TOTAL RESP RATE 28 resp/min
[2018-03-05 10:28] LABS: O2 SATURATION (CALCULATED) 96.1 % (95-99); PCO2 52 mm Hg (35-45); PO2 85 mm Hg (80-100)
[2018-03-05 10:29] LABS: BASE EXCESS -7.7 mEq/L (-3 to +3); BICARBONATE 20.3 mEq/L (22-26); CARBOXY HGB 1.4 % (0-5); METHEMOGLOBIN 0.4 % (0-1.5)
[2018-03-05 11:26] LABS: HEMATOCRIT 32.3 % (36.0-46.0); HEMOGLOBIN 10.3 G/DL (11.9-15.5); MCH 28.2 PG (29.0-34.0); MCHC 31.9 G/DL (30.0-36.0); MCV 88.5 FL (83-99); PLATELET COUNT 157 K/uL (156-360); RBC DIS.WIDTH-CV 15.4 % (11.8-14.6); RBC DIS.WIDTH-SD 50.2 % (39-53); RED BLOOD COUNT 3.65 M/uL (3.80-5.20); WHITE BLOOD COUNT 17.7 K/uL (4.1-10.2)
[2018-03-05 11:53] LABS: BASOPHIL (%) 0.1 % (0-1); EOSINOPHIL (%) 0 % (0-5); IMMATURE GRANULOCYTE (%) 2.9 % (0.0-0.7); LYMPHOCYTE (%) 4.2 % (15-42); LYMPHOCYTE COUNT 0.7 K/uL (1.0-2.8); MONOCYTE (%) 3.3 % (3-12); MONOCYTE COUNT 0.6 K/uL (0-0.8); NEUTROPHIL (%) 89.5 % (45-76); NEUTROPHIL COUNT 15.8 K/uL (1.8-6.4)
[2018-03-05 12:24] LABS: CHLORIDE 105 MEQ/L (99-109); POTASSIUM 4.3 MEQ/L (3.7-5.4); SODIUM 138 MEQ/L (136-147); UREA NITROGEN (BUN) 52 mg/dL (9-23)
[2018-03-05 12:25] LABS: CREATININE 2.6 MG/DL (0.6-1.3); GFR ESTIMATE (CALCULATED) 20 mL/min/; GLUCOSE 120 mg/dL (70-99)
[2018-03-05 13:25] LABS: PCO2 50 mm Hg (35-45); PO2 129 mm Hg (80-100); pH 7.21 (7.35-7.45)
[2018-03-05 13:26] LABS: BASE EXCESS -8.1 mEq/L (-3 to +3); BICARBONATE 20 mEq/L (22-26); COMMENTS - BLOOD GASES A+C+; DEVICE VM; FI02 50 %; O2 FLOW 12 L/MIN; SITE RR
[2018-03-05 17:51] LABS: CHLORIDE 104 MEQ/L (99-109); GLUCOSE 126 mg/dL (70-99); POTASSIUM 4.7 MEQ/L (3.7-5.4); SODIUM 135 MEQ/L (136-147); UREA NITROGEN (BUN) 58 mg/dL (9-23)
[2018-03-05 17:54] LABS: CREATININE 3.3 MG/DL (0.6-1.3); GFR ESTIMATE (CALCULATED) 15 mL/min/
[2018-03-05 18:53] LABS: APPEARANCE CLOUDY ((CLEAR)); BILIRUBIN NEGATIVE; BLOOD SMALL; GLUCOSE (STRIP) 50; KETONES 5; LEUKOCYTES SMALL; NITRITE NEGATIVE; PROTEIN (STRIP) 100; UROBILINOGEN 0.2 MG/DL (0.2-1.0)
[2018-03-05 18:55] LABS: COLOR DK YELLOW ((YELLOW))
[2018-03-05 19:14] LABS: UR CREATININE CONCENTRATION 267.1 MG/DL
[2018-03-05 19:19] LABS: CREATINE KINASE 1422 IU/L (1-294)
[2018-03-05 19:28] LABS: BACTERIA 1+ /HPF; EPITHELIAL CELLS RARE /HPF; MUCUS NONE SEEN /LPF; RED BLOOD CELLS NONE SEEN /HPF (0-5); WHITE BLOOD CELLS 0-5 /HPF (0-5)
[2018-03-05 19:29] LABS: AMORPHOUS URATES CRYSTALS 1+
[2018-03-05 20:41] LABS: TROP-I INTERPRETATION NEGATIVE; TROPONIN-I 0.03 ng/mL (0.0-0.30)
[2018-03-05 21:06] LABS: INTER. NORMALIZED RATIO 2.3
[2018-03-05 21:09] LABS: PTT 40.1 SEC (25-37)
[2018-03-06] VITALS (21 sets, daily range): BP systolic 83–148; BP diastolic 48–92
[2018-03-06 00:46] LABS: SITE LR
[2018-03-06 00:49] LABS: DEVICE 980 VENT; FI02 100 %; MECHANICAL RATE 16 resp/min; MODE AC; PCO2 44 mm Hg (35-45); PEEP 10 CM/H20; PO2 348 mm Hg (80-100); TIDAL VOLUME 500 ML; TOTAL RESP RATE 20 resp/min; pH 7.24 (7.35-7.45)
[2018-03-06 00:50] LABS: BICARBONATE 18.9 mEq/L (22-26); CARBOXY HGB 0.6 % (0-5); METHEMOGLOBIN 0.4 % (0-1.5)
[2018-03-06 04:27] LABS: INTER. NORMALIZED RATIO 2.1
[2018-03-06 04:29] LABS: PTT 36.3 SEC (25-37)
[2018-03-06 05:39] LABS: INTER. NORMALIZED RATIO 2.1
[2018-03-06 05:42] LABS: PTT 36.1 SEC (25-37)
[2018-03-06 06:02] LABS: TRIGLYCERIDES 388 MG/DL (Normal: <150)
[2018-03-06 06:37] LABS: C-REACTIVE PROTEIN 317.6 MG/L (0-10); CHLORIDE 103 MEQ/L (99-109); CREATININE 3.6 MG/DL (0.6-1.3); GFR ESTIMATE (CALCULATED) 14 mL/min/; GLUCOSE 96 mg/dL (70-99); POTASSIUM 5.2 MEQ/L (3.7-5.4); PREALBUMIN 6.2 mg/dL (10-40); SODIUM 132 MEQ/L (136-147); UREA NITROGEN (BUN) 62 mg/dL (9-23); VANCOMYCIN, TROUGH 25.5 MCG/ML (10-20)
[2018-03-06 08:28] LABS: MCH 28.3 PG (29.0-34.0); MCHC 32.8 G/DL (30.0-36.0); MCV 86.2 FL (83-99); PLATELET COUNT 144 K/uL (156-360); RBC DIS.WIDTH-CV 15.5 % (11.8-14.6); RBC DIS.WIDTH-SD 49.2 % (39-53); WHITE BLOOD COUNT 7.1 K/uL (4.1-10.2)
[2018-03-06 08:39] LABS: HEMOGLOBIN 8.2 G/DL (11.9-15.5)
[2018-03-06 08:48] LABS: COMMENTS - BLOOD GASES C+; DEVICE 980; FI02 40 %; MECHANICAL RATE 22 resp/min; MODE A/C; PCO2 33 mm Hg (35-45); PEEP 10 CM/H20; PO2 112 mm Hg (80-100); SITE RIGHTALINE; TIDAL VOLUME 500 ML; TOTAL RESP RATE 22 resp/min; pH 7.33 (7.35-7.45)
[2018-03-06 08:49] LABS: BASE EXCESS -7.7 mEq/L (-3 to +3); BICARBONATE 17.4 mEq/L (22-26); CARBOXY HGB 0.8 % (0-5); METHEMOGLOBIN 0.2 % (0-1.5)
[2018-03-06 08:52] LABS: PHOSPHORUS 6.9 mg/dL (2.5-4.9)
[2018-03-06 08:53] LABS: MAGNESIUM 1.4 mg/dl (1.3-2.7)
[2018-03-06 10:12] LABS: APPEARANCE TURBID ((CLEAR)); BILIRUBIN NEGATIVE; BLOOD MODERATE; COLOR AMBER ((YELLOW)); GLUCOSE (STRIP) NEGATIVE; KETONES NEGATIVE; LEUKOCYTES MODERATE; NITRITE NEGATIVE; PROTEIN (STRIP) 100; SPECIFIC GRAVITY 1.019 (1.000-1.030); UROBILINOGEN 0.2 MG/DL (0.2-1.0)
[2018-03-06 10:31] LABS: RED BLOOD CELLS 15-20 /HPF (0-5); WHITE BLOOD CELLS TNTC /HPF (0-5)
[2018-03-06 10:32] LABS: BACTERIA 2+ /HPF; EPITHELIAL CELLS 2+ /HPF; MUCUS RARE /LPF
[2018-03-06 10:33] LABS: COARSE GRANULAR CASTS 0-5 /LPF; HYALINE CASTS RARE /LPF
[2018-03-06 10:42] LABS: UR CREATININE CONCENTRATION 237.9 MG/DL
[2018-03-06 11:06] LABS: CHLORIDE 106 MEQ/L (99-109); CREATININE 3.5 MG/DL (0.6-1.3); GFR ESTIMATE (CALCULATED) 14 mL/min/; GLUCOSE 116 mg/dL (70-99); POTASSIUM 4.7 MEQ/L (3.7-5.4); SODIUM 135 MEQ/L (136-147); UREA NITROGEN (BUN) 60 mg/dL (9-23)
[2018-03-07] VITALS (18 sets, daily range): BP systolic 88–148; BP diastolic 57–85
[2018-03-07 06:38] LABS: BASOPHIL (%) 0.2 % (0-1); EOSINOPHIL (%) 0.2 % (0-5); HEMATOCRIT 22.9 % (36.0-46.0); HEMOGLOBIN 7.5 G/DL (11.9-15.5); IMMATURE GRANULOCYTE (%) 1.6 % (0.0-0.7); LYMPHOCYTE (%) 8.7 % (15-42); LYMPHOCYTE COUNT 0.5 K/uL (1.0-2.8); MCH 27.7 PG (29.0-34.0); MCHC 32.8 G/DL (30.0-36.0); MCV 84.5 FL (83-99); MONOCYTE (%) 6.6 % (3-12); MONOCYTE COUNT 0.4 K/uL (0-0.8); NEUTROPHIL (%) 82.7 % (45-76); RED BLOOD COUNT 2.71 M/uL (3.80-5.20); WHITE BLOOD COUNT 6.1 K/uL (4.1-10.2)
[2018-03-07 07:03] LABS: ALBUMIN 2.9 G/DL (3.2-4.8); ALKALINE PHOSPHATASE 46 IU/L (3-129); ALT (GPT) 18 IU/L (3-49); AST (GOT) 36 IU/L (2-34); CHLORIDE 103 MEQ/L (99-109); CREATININE 3.8 MG/DL (0.6-1.3); GFR ESTIMATE (CALCULATED) 13 mL/min/; PHOSPHORUS 6.2 mg/dL (2.5-4.9); POTASSIUM 4.1 MEQ/L (3.7-5.4); SODIUM 134 MEQ/L (136-147); TOTAL BILIRUBIN 1.5 MG/DL (0.0-1.0); TOTAL PROTEIN 5.7 G/DL (6.4-8.3); UREA NITROGEN (BUN) 71 mg/dL (9-23)
[2018-03-07 07:07] LABS: GLUCOSE 195 mg/dL (70-99); MAGNESIUM 1.8 mg/dl (1.3-2.7)
[2018-03-07 07:08] LABS: CREATINE KINASE 1257 IU/L (1-294)
[2018-03-07 07:15] LABS: PLAT.SUFFICIENCY DECREASED
[2018-03-07 07:30] LABS: PLATELET COUNT 88 K/uL (156-360)
[2018-03-07 17:04] LABS: HEMATOCRIT 24.1 % (36.0-46.0); HEMOGLOBIN 7.9 G/DL (11.9-15.5); MCH 28.4 PG (29.0-34.0); MCHC 32.8 G/DL (30.0-36.0); MCV 86.7 FL (83-99); NRBC (%) 0.3 /100 WBC (0-0); PLATELET COUNT 95 K/uL (156-360); RBC DIS.WIDTH-CV 15.1 % (11.8-14.6); RBC DIS.WIDTH-SD 48.4 % (39-53); RED BLOOD COUNT 2.78 M/uL (3.80-5.20); WHITE BLOOD COUNT 7.9 K/uL (4.1-10.2)
[2018-03-08] VITALS (17 sets, daily range): BP systolic 106–141; BP diastolic 52–83
[2018-03-08 06:28] LABS: BASOPHIL (%) 0.1 % (0-1); EOSINOPHIL (%) 0.1 % (0-5); HEMATOCRIT 21.9 % (36.0-46.0); HEMOGLOBIN 7.3 G/DL (11.9-15.5); IMMATURE GRANULOCYTE (%) 2.8 % (0.0-0.7); LYMPHOCYTE (%) 6.4 % (15-42); LYMPHOCYTE COUNT 0.5 K/uL (1.0-2.8); MCH 28.6 PG (29.0-34.0); MCHC 33.3 G/DL (30.0-36.0); MCV 85.9 FL (83-99); MONOCYTE (%) 6.8 % (3-12); MONOCYTE COUNT 0.5 K/uL (0-0.8); NEUTROPHIL (%) 83.8 % (45-76); NEUTROPHIL COUNT 6.3 K/uL (1.8-6.4); NRBC (%) 0.3 /100 WBC (0-0); PLATELET COUNT 85 K/uL (156-360); RBC DIS.WIDTH-CV 15.2 % (11.8-14.6); RBC DIS.WIDTH-SD 48.3 % (39-53); RED BLOOD COUNT 2.55 M/uL (3.80-5.20); WHITE BLOOD COUNT 7.5 K/uL (4.1-10.2)
[2018-03-08 08:36] LABS: ALT (GPT) 17 IU/L (3-49); AST (GOT) 30 IU/L (2-34); CHLORIDE 100 MEQ/L (99-109); CREATINE KINASE 808 IU/L (1-294); MAGNESIUM 1.9 mg/dl (1.3-2.7); PHOSPHORUS 4.2 mg/dL (2.5-4.9); POTASSIUM 3.8 MEQ/L (3.7-5.4); SODIUM 134 MEQ/L (136-147); TOTAL BILIRUBIN 1.4 MG/DL (0.0-1.0); TOTAL PROTEIN 5.4 G/DL (6.4-8.3); UREA NITROGEN (BUN) 72 mg/dL (9-23)
[2018-03-08 08:38] LABS: ALKALINE PHOSPHATASE 79 IU/L (3-129); CREATININE 3.1 MG/DL (0.6-1.3); GFR ESTIMATE (CALCULATED) 17 mL/min/; GLUCOSE 306 mg/dL (70-99)
[2018-03-08 09:08] LABS: CHLORIDE 109 MEQ/L (99-109); GFR ESTIMATE (CALCULATED) 17 mL/min/; GLUCOSE 311 mg/dL (70-99); POTASSIUM 4.1 MEQ/L (3.7-5.4); SODIUM 136 MEQ/L (136-147); UREA NITROGEN (BUN) 70 mg/dL (9-23)
[2018-03-08 21:09] LABS: Heparin Induced Plt Ab Negative (Negative)
[2018-03-09] VITALS (13 sets, daily range): BP systolic 113–141; BP diastolic 64–83
[2018-03-09 04:07] LABS: HEMATOCRIT 22.5 % (36.0-46.0); HEMOGLOBIN 7.5 G/DL (11.9-15.5); MCH 28.6 PG (29.0-34.0); MCHC 33.3 G/DL (30.0-36.0); MCV 85.9 FL (83-99); RBC DIS.WIDTH-CV 15.1 % (11.8-14.6); RBC DIS.WIDTH-SD 47.7 % (39-53); RED BLOOD COUNT 2.62 M/uL (3.80-5.20); WHITE BLOOD COUNT 9.8 K/uL (4.1-10.2)
[2018-03-09 04:11] LABS: PLATELET COUNT 112 K/uL (156-360)
[2018-03-09 04:21] LABS: CHLORIDE 105 mEq/L (99-109); POTASSIUM 4.1 mEq/L (3.7-5.4); SODIUM 137 mEq/L (136-147)
[2018-03-09 04:23] LABS: ALBUMIN 3.5 g/dL (3.2-4.8)
[2018-03-09 04:25] LABS: GLUCOSE 331 mg/dL (70-99); TOTAL BILIRUBIN 1.1 mg/dL (0.0-1.0)
[2018-03-09 04:26] LABS: TOTAL PROTEIN 5.6 g/dL (6.4-8.3)
[2018-03-09 04:29] LABS: CREATININE 2.8 mg/dL (0.6-1.3); GFR ESTIMATE (CALCULATED) 19 mL/min/; PHOSPHORUS 3.6 mg/dL (2.5-4.9)
[2018-03-09 04:30] LABS: ALKALINE PHOSPHATASE 103 IU/L (3-129); AST (GOT) 27 IU/L (2-34); UREA NITROGEN (BUN) 76 mg/dL (9-23)
[2018-03-09 04:32] LABS: ALT (GPT) 21 IU/L (3-49); CREATINE KINASE 624 IU/L (1-294)
[2018-03-09 04:52] LABS: ABS NEUTROPHIL COUNT 8.9; ANISOCYTOSIS 1+; EOSINOPHIL ABS CT 0; GIANT PLATELETS 1+; HYPOCHROMASIA 1+; LYMPHOCYTES 5.3 % (15.0-45.0); MICROCYTOSIS 1+; MONOCYTES 0.9 % (0-9.0); MYELOCYTES 2.6 %; PLAT.SUFFICIENCY DECREASED; SEG.NEUTROPHILS 91.2 % (46.0-76.0); TOX.VACUOLIZATION 1+; TOXIC GRANULATION 2+
[2018-03-09 16:41] LABS: UFH SRA Result Negative (Negative)
[2018-03-10] VITALS (11 sets, daily range): BP systolic 133–174; BP diastolic 66–91
[2018-03-10 05:33] LABS: HEMATOCRIT 22.8 % (36.0-46.0); HEMOGLOBIN 7.2 G/DL (11.9-15.5); MCH 27.4 PG (29.0-34.0); MCHC 31.6 G/DL (30.0-36.0); MCV 86.7 FL (83-99); NRBC (%) 0.3 /100 WBC (0-0); RBC DIS.WIDTH-CV 15.2 % (11.8-14.6); RBC DIS.WIDTH-SD 48.8 % (39-53); RED BLOOD COUNT 2.63 M/uL (3.80-5.20); WHITE BLOOD COUNT 10.7 K/uL (4.1-10.2)
[2018-03-10 05:44] LABS: PLATELET COUNT 171 K/uL (156-360)
[2018-03-10 06:01] LABS: ABS NEUTROPHIL COUNT 8.8; BASOPHILS 0.9 %; EOSINOPHIL ABS CT 0.1; EOSINOPHILS 0.9 % (0-5.0); GIANT PLATELETS 2+; LYMPHOCYTES 7.8 % (15.0-45.0); METAMYELOCYTES 1.7 %; MONOCYTES 5.2 % (0-9.0); MYELOCYTES 1.7 %; NUCLEATED RBC'S 0.9; PLAT.SUFFICIENCY ADEQUATE; SEG.NEUTROPHILS 81.8 % (46.0-76.0)
[2018-03-10 06:07] LABS: ALBUMIN 3.1 G/DL (3.2-4.8); ALKALINE PHOSPHATASE 96 IU/L (3-129); ALT (GPT) 13 IU/L (3-49); AST (GOT) 14 IU/L (2-34); CHLORIDE 106 MEQ/L (99-109); GFR ESTIMATE (CALCULATED) 28 mL/min/; GLUCOSE 264 mg/dL (70-99); MAGNESIUM 1.9 mg/dl (1.3-2.7); SODIUM 139 MEQ/L (136-147); TOTAL BILIRUBIN 0.8 MG/DL (0.0-1.0); TOTAL PROTEIN 6.3 G/DL (6.4-8.3); UREA NITROGEN (BUN) 79 mg/dL (9-23)
[2018-03-10 10:49] LABS: COMMENTS - BLOOD GASES C+; CONTINUOUS POS AIRWAY PRESSURE 10 cm H2O; DEVICE VENT; FI02 50 %; MODE SPONT; PCO2 38 mm Hg (35-45); PO2 65 mm Hg (80-100); PRES. SUPPORT 20 CM/H2O; SITE ALINE; TOTAL RESP RATE 33 resp/min; pH 7.39 (7.35-7.45)
[2018-03-10 10:50] LABS: BASE EXCESS -1.8 mEq/L (-3 to +3); CARBOXY HGB 1.4 % (0-5); METHEMOGLOBIN 0.3 % (0-1.5)
[2018-03-11 04:29] LABS: HEMATOCRIT 22.4 % (36.0-46.0); HEMOGLOBIN 7.3 G/DL (11.9-15.5); MCH 28.7 PG (29.0-34.0); MCHC 32.6 G/DL (30.0-36.0); MCV 88.2 FL (83-99); NRBC (%) 0.4 /100 WBC (0-0); RBC DIS.WIDTH-CV 15.3 % (11.8-14.6); RBC DIS.WIDTH-SD 49.1 % (39-53); RED BLOOD COUNT 2.54 M/uL (3.80-5.20); WHITE BLOOD COUNT 12.1 K/uL (4.1-10.2)
[2018-03-11 04:32] LABS: PLATELET COUNT 227 K/uL (156-360)
[2018-03-11 05:09] LABS: CHLORIDE 108 mEq/L (99-109); POTASSIUM 4.2 mEq/L (3.7-5.4); SODIUM 142 mEq/L (136-147)
[2018-03-11 05:10] LABS: MAGNESIUM 1.8 mg/dL (1.3-2.7)
[2018-03-11 05:11] LABS: GLUCOSE 326 mg/dL (70-99)
[2018-03-11 05:14] LABS: PHOSPHORUS 2.8 mg/dL (2.5-4.9)
[2018-03-11 05:15] LABS: CREATININE 1.7 mg/dL (0.6-1.3); GFR ESTIMATE (CALCULATED) 33 mL/min/
[2018-03-11 05:16] LABS: UREA NITROGEN (BUN) 78 mg/dL (9-23)
[2018-03-11 08:27] LABS: ABS NEUTROPHIL COUNT 9.8; ANISOCYTOSIS 2+; BAND NEUTROPHILS 4.4 % (0-8.0); EOSINOPHIL ABS CT 0; LYMPHOCYTES 8.7 % (15.0-45.0); METAMYELOCYTES 2.6 %; MICROCYTOSIS 2+; MONOCYTES 5.2 % (0-9.0); MYELOCYTES 2.6 %; POLYCHROMASIA 1+; SEG.NEUTROPHILS 76.5 % (46.0-76.0)
[2018-03-11] MEDS ORDERED: TRESIBA FL100 UNIT/1 SC (11:26)
[2018-03-11 19:00] VITALS: BP 154/65
[2018-03-12 06:14] LABS: HEMATOCRIT 23.6 % (36.0-46.0); HEMOGLOBIN 7.4 G/DL (11.9-15.5); MCH 27.8 PG (29.0-34.0); MCHC 31.4 G/DL (30.0-36.0); MCV 88.7 FL (83-99); NRBC (%) 0.5 /100 WBC (0-0); PLATELET COUNT 270 K/uL (156-360); RBC DIS.WIDTH-CV 15.1 % (11.8-14.6); RBC DIS.WIDTH-SD 48.1 % (39-53); RED BLOOD COUNT 2.66 M/uL (3.80-5.20); WHITE BLOOD COUNT 14.7 K/uL (4.1-10.2)
[2018-03-12 08:19] LABS: CHLORIDE 107 MEQ/L (99-109); CREATININE 1.3 MG/DL (0.6-1.3); GFR ESTIMATE (CALCULATED) 45 mL/min/; GLUCOSE 283 mg/dL (70-99); MAGNESIUM 1.8 mg/dl (1.3-2.7); PHOSPHORUS 3.5 mg/dL (2.5-4.9); POTASSIUM 4.2 MEQ/L (3.7-5.4); SODIUM 144 MEQ/L (136-147); UREA NITROGEN (BUN) 74 mg/dL (9-23)
[2018-03-13 06:33] LABS: HEMOGLOBIN 7.6 G/DL (11.9-15.5); MCH 28.6 PG (29.0-34.0); MCHC 31.7 G/DL (30.0-36.0); MCV 90.2 FL (83-99); NRBC (%) 0.5 /100 WBC (0-0); PLATELET COUNT 250 K/uL (156-360); RBC DIS.WIDTH-SD 48.9 % (39-53); RED BLOOD COUNT 2.66 M/uL (3.80-5.20); WHITE BLOOD COUNT 15.3 K/uL (4.1-10.2)
[2018-03-13 06:56] LABS: ABS NEUTROPHIL COUNT 12.5; ANISOCYTOSIS 1+; BAND NEUTROPHILS 0.9 % (0-8.0); EOSINOPHIL ABS CT 0; LYMPHOCYTES 7.9 % (15.0-45.0); METAMYELOCYTES 1.7 %; MICROCYTOSIS 1+; MONOCYTES 8.8 % (0-9.0); PLAT.SUFFICIENCY ADEQUATE; POLYCHROMASIA 1+; SEG.NEUTROPHILS 80.7 % (46.0-76.0); SMUDGE CELLS 4.4
[2018-03-13 07:00] VITALS: BP 171/60
[2018-03-13 08:00] VITALS: BP 179/68
[2018-03-13 09:15] LABS: CHLORIDE 110 MEQ/L (99-109); CREATININE 1.2 MG/DL (0.6-1.3); GFR ESTIMATE (CALCULATED) 50 mL/min/; GLUCOSE 248 mg/dL (70-99); PHOSPHORUS 4.2 mg/dL (2.5-4.9); POTASSIUM 4.1 MEQ/L (3.7-5.4); SODIUM 149 MEQ/L (136-147); UREA NITROGEN (BUN) 68 mg/dL (9-23)
[2018-03-13 09:17] LABS: MAGNESIUM 1.5 mg/dl (1.3-2.7)
[2018-03-13 15:00] VITALS: BP 167/75
[2018-03-13 16:00] VITALS: BP 184/81
[2018-03-13 18:00] VITALS: BP 169/76
[2018-03-14] VITALS (10 sets, daily range): BP systolic 83–181; BP diastolic 44–77
[2018-03-14 06:16] LABS: HEMATOCRIT 24.2 % (36.0-46.0); HEMOGLOBIN 7.3 G/DL (11.9-15.5); MCH 27.7 PG (29.0-34.0); MCHC 30.2 G/DL (30.0-36.0); MCV 91.7 FL (83-99); NRBC (%) 0.3 /100 WBC (0-0); PLATELET COUNT 269 K/uL (156-360); RBC DIS.WIDTH-CV 15.2 % (11.8-14.6); RBC DIS.WIDTH-SD 49.5 % (39-53); RED BLOOD COUNT 2.64 M/uL (3.80-5.20); WHITE BLOOD COUNT 12.3 K/uL (4.1-10.2)
[2018-03-14 06:59] LABS: CHLORIDE 112 MEQ/L (99-109); CREATININE 1.2 MG/DL (0.6-1.3); GFR ESTIMATE (CALCULATED) 50 mL/min/; GLUCOSE 215 mg/dL (70-99); MAGNESIUM 1.6 mg/dl (1.3-2.7); PHOSPHORUS 4.4 mg/dL (2.5-4.9); POTASSIUM 4.4 MEQ/L (3.7-5.4); SODIUM 151 MEQ/L (136-147); UREA NITROGEN (BUN) 73 mg/dL (9-23)
[2018-03-15] VITALS (19 sets, daily range): BP systolic 121–157; BP diastolic 67–99
[2018-03-15 07:19] LABS: CHLORIDE 113 MEQ/L (99-109); CREATININE 1.3 MG/DL (0.6-1.3); GFR ESTIMATE (CALCULATED) 45 mL/min/; GLUCOSE 165 mg/dL (70-99); MAGNESIUM 1.5 mg/dl (1.3-2.7); PHOSPHORUS 4.4 mg/dL (2.5-4.9); POTASSIUM 4.6 MEQ/L (3.7-5.4); SODIUM 148 MEQ/L (136-147); UREA NITROGEN (BUN) 69 mg/dL (9-23)
[2018-03-16] VITALS (21 sets, daily range): BP systolic 133–165; BP diastolic 63–91
[2018-03-16 05:25] LABS: HEMATOCRIT 25.2 % (36.0-46.0); HEMOGLOBIN 7.4 G/DL (11.9-15.5); MCH 27.5 PG (29.0-34.0); MCHC 29.4 G/DL (30.0-36.0); MCV 93.7 FL (83-99); PLATELET COUNT 261 K/uL (156-360); RBC DIS.WIDTH-SD 50.5 % (39-53); RED BLOOD COUNT 2.69 M/uL (3.80-5.20); WHITE BLOOD COUNT 10.8 K/uL (4.1-10.2)
[2018-03-16 12:18] LABS: APPEARANCE CLOUDY ((CLEAR)); BILIRUBIN NEGATIVE; BLOOD MODERATE; COLOR YELLOW ((YELLOW)); GLUCOSE (STRIP) NEGATIVE; KETONES NEGATIVE; LEUKOCYTES SMALL; NITRITE NEGATIVE; PROTEIN (STRIP) 100; SPECIFIC GRAVITY 1.018 (1.000-1.030); UROBILINOGEN 0.2 MG/DL (0.2-1.0)
[2018-03-16 12:45] LABS: RED BLOOD CELLS 20-30 /HPF (0-5); WHITE BLOOD CELLS 30-40 /HPF (0-5)
[2018-03-16 12:46] LABS: BACTERIA RARE /HPF; EPITHELIAL CELLS 1+ /HPF; HYALINE CASTS RARE /LPF; MUCUS RARE /LPF; UCUL ADDED? YES
[2018-03-17] VITALS (29 sets, daily range): BP systolic 116–175; BP diastolic 60–81
[2018-03-17 06:26] LABS: BASOPHIL (%) 0.2 % (0-1); EOSINOPHIL (%) 1.2 % (0-5); EOSINOPHIL COUNT 0.1 K/uL (0-0.3); HEMATOCRIT 24.3 % (36.0-46.0); HEMOGLOBIN 7.2 G/DL (11.9-15.5); IMMATURE GRANULOCYTE (%) 1.4 % (0.0-0.7); LYMPHOCYTE (%) 12.1 % (15-42); LYMPHOCYTE COUNT 1.1 K/uL (1.0-2.8); MCH 27.8 PG (29.0-34.0); MCHC 29.6 G/DL (30.0-36.0); MCV 93.8 FL (83-99); MONOCYTE (%) 5.4 % (3-12); MONOCYTE COUNT 0.5 K/uL (0-0.8); NEUTROPHIL (%) 79.7 % (45-76); NEUTROPHIL COUNT 7.2 K/uL (1.8-6.4); PLATELET COUNT 246 K/uL (156-360); RBC DIS.WIDTH-CV 15.2 % (11.8-14.6); RBC DIS.WIDTH-SD 51.1 % (39-53); RED BLOOD COUNT 2.59 M/uL (3.80-5.20)
[2018-03-17 06:49] LABS: CHLORIDE 113 MEQ/L (99-109); CREATININE 1.2 MG/DL (0.6-1.3); GFR ESTIMATE (CALCULATED) 50 mL/min/; GLUCOSE 164 mg/dL (70-99); POTASSIUM 4.7 MEQ/L (3.7-5.4); SODIUM 149 MEQ/L (136-147); UREA NITROGEN (BUN) 68 mg/dL (9-23)
[2018-03-17 22:22] LABS: HIGH-SENS C-REACTIVE PROTEIN 5.76 MG/DL (0.02-0.20)
[2018-03-18] VITALS (19 sets, daily range): BP systolic 132–167; BP diastolic 57–86
[2018-03-18 07:03] LABS: BASOPHIL (%) 0.2 % (0-1); EOSINOPHIL (%) 0.8 % (0-5); EOSINOPHIL COUNT 0.1 K/uL (0-0.3); HEMATOCRIT 24.3 % (36.0-46.0); HEMOGLOBIN 7.2 G/DL (11.9-15.5); IMMATURE GRANULOCYTE (%) 0.8 % (0.0-0.7); MCH 27.8 PG (29.0-34.0); MCHC 29.6 G/DL (30.0-36.0); MCV 93.8 FL (83-99); MONOCYTE (%) 6.4 % (3-12); MONOCYTE COUNT 0.5 K/uL (0-0.8); NEUTROPHIL (%) 79.8 % (45-76); NEUTROPHIL COUNT 6.6 K/uL (1.8-6.4); PLATELET COUNT 221 K/uL (156-360); RBC DIS.WIDTH-CV 15.2 % (11.8-14.6); RBC DIS.WIDTH-SD 50.7 % (39-53); RED BLOOD COUNT 2.59 M/uL (3.80-5.20); WHITE BLOOD COUNT 8.3 K/uL (4.1-10.2)
[2018-03-18 07:30] LABS: CHLORIDE 111 MEQ/L (99-109); CREATININE 1.4 MG/DL (0.6-1.3); GFR ESTIMATE (CALCULATED) 42 mL/min/; HIGH-SENS C-REACTIVE PROTEIN 7.92 MG/DL (0.02-0.20); PHOSPHORUS 4.1 mg/dL (2.5-4.9); POTASSIUM 4.6 MEQ/L (3.7-5.4); SODIUM 146 MEQ/L (136-147); UREA NITROGEN (BUN) 79 mg/dL (9-23)
[2018-03-18 07:44] LABS: GLUCOSE 269 mg/dL (70-99); MAGNESIUM 1.8 mg/dl (1.3-2.7)
[2018-03-19] VITALS (21 sets, daily range): BP systolic 112–160; BP diastolic 48–101
[2018-03-19 06:32] LABS: HEMATOCRIT 23.5 % (36.0-46.0); HEMOGLOBIN 7.1 G/DL (11.9-15.5); MCH 28.1 PG (29.0-34.0); MCHC 30.2 G/DL (30.0-36.0); MCV 92.9 FL (83-99); PLATELET COUNT 206 K/uL (156-360); RBC DIS.WIDTH-CV 15.7 % (11.8-14.6); RBC DIS.WIDTH-SD 50.4 % (39-53); RED BLOOD COUNT 2.53 M/uL (3.80-5.20); WHITE BLOOD COUNT 7.2 K/uL (4.1-10.2)
[2018-03-19 06:47] LABS: INTER. NORMALIZED RATIO 1.5
[2018-03-19 09:55] LABS: ALBUMIN 2.6 G/DL (3.2-4.8); ALKALINE PHOSPHATASE 59 IU/L (3-129); ALT (GPT) 27 IU/L (3-49); AST (GOT) 44 IU/L (2-34); CREATININE 1.4 MG/DL (0.6-1.3); GFR ESTIMATE (CALCULATED) 42 mL/min/; GLUCOSE 220 mg/dL (70-99); MAGNESIUM 1.9 mg/dl (1.3-2.7); PHOSPHORUS 4.3 mg/dL (2.5-4.9); TOTAL BILIRUBIN 0.5 MG/DL (0.0-1.0); TOTAL PROTEIN 6.2 G/DL (6.4-8.3); UREA NITROGEN (BUN) 79 mg/dL (9-23)
[2018-03-19 10:21] LABS: CHLORIDE 111 MEQ/L (99-109); POTASSIUM 4.3 MEQ/L (3.7-5.4); SODIUM 148 MEQ/L (136-147)
[2018-03-19 10:22] LABS: HIGH-SENS C-REACTIVE PROTEIN > 8.00 MG/DL (0.02-0.20)
[2018-03-19 18:55] LABS: APPEARANCE CLOUDY ((CLEAR)); BILIRUBIN NEGATIVE; BLOOD LARGE; COLOR YELLOW ((YELLOW)); GLUCOSE (STRIP) NEGATIVE; KETONES NEGATIVE; LEUKOCYTES MODERATE; NITRITE NEGATIVE; PROTEIN (STRIP) 100; SPECIFIC GRAVITY 1.017 (1.000-1.030); UROBILINOGEN 0.2 MG/DL (0.2-1.0)
[2018-03-19 19:58] LABS: BACTERIA 3+ /HPF; EPITHELIAL CELLS 4+ /HPF; MUCUS NONE SEEN /LPF; RED BLOOD CELLS 20-30 /HPF (0-5); WHITE BLOOD CELLS 15-20 /HPF (0-5)
[2018-03-20] VITALS (20 sets, daily range): BP systolic 109–162; BP diastolic 65–94
[2018-03-20 06:21] LABS: BASOPHIL (%) 0.5 % (0-1); EOSINOPHIL (%) 1.1 % (0-5); EOSINOPHIL COUNT 0.1 K/uL (0-0.3); HEMATOCRIT 25.2 % (36.0-46.0); HEMOGLOBIN 7.6 G/DL (11.9-15.5); LYMPHOCYTE (%) 12.3 % (15-42); MCH 28.4 PG (29.0-34.0); MCHC 30.2 G/DL (30.0-36.0); MONOCYTE (%) 5.9 % (3-12); MONOCYTE COUNT 0.5 K/uL (0-0.8); NEUTROPHIL (%) 79.2 % (45-76); NEUTROPHIL COUNT 6.4 K/uL (1.8-6.4); PLATELET COUNT 203 K/uL (156-360); RBC DIS.WIDTH-CV 15.9 % (11.8-14.6); RBC DIS.WIDTH-SD 53.5 % (39-53); RED BLOOD COUNT 2.68 M/uL (3.80-5.20); WHITE BLOOD COUNT 8.1 K/uL (4.1-10.2)
[2018-03-20 06:45] LABS: ALBUMIN 2.7 G/DL (3.2-4.8); ALKALINE PHOSPHATASE 68 IU/L (3-129); ALT (GPT) 37 IU/L (3-49); AST (GOT) 58 IU/L (2-34); CHLORIDE 111 MEQ/L (99-109); CREATININE 1.5 MG/DL (0.6-1.3); GFR ESTIMATE (CALCULATED) 38 mL/min/; GLUCOSE 209 mg/dL (70-99); MAGNESIUM 1.9 mg/dl (1.3-2.7); PHOSPHORUS 5.6 mg/dL (2.5-4.9); POTASSIUM 4.5 MEQ/L (3.7-5.4); SODIUM 146 MEQ/L (136-147); TOTAL BILIRUBIN 0.6 MG/DL (0.0-1.0); TOTAL PROTEIN 6.4 G/DL (6.4-8.3); UREA NITROGEN (BUN) 77 mg/dL (9-23)
[2018-03-20 10:09] LABS: COMMENTS - BLOOD GASES A+C+; DEVICE VENT; FI02 35 %; MODE SPONT; PCO2 37 mm Hg (35-45); PEEP 5 CM/H20; PO2 74 mm Hg (80-100); PRES. SUPPORT 10 CM/H2O; SITE LEFT RAD; TOTAL RESP RATE 33 resp/min; pH 7.45 (7.35-7.45)
[2018-03-20 10:10] LABS: BASE EXCESS 1.6 mEq/L (-3 to +3); BICARBONATE 25.7 mEq/L (22-26); CARBOXY HGB 2.3 % (0-5); METHEMOGLOBIN 0.8 % (0-1.5)
[2018-03-21] VITALS (19 sets, daily range): BP systolic 129–165; BP diastolic 61–93
[2018-03-21 05:49] LABS: BASOPHIL (%) 0.4 % (0-1); EOSINOPHIL (%) 0.8 % (0-5); EOSINOPHIL COUNT 0.1 K/uL (0-0.3); HEMATOCRIT 24.8 % (36.0-46.0); HEMOGLOBIN 7.5 G/DL (11.9-15.5); IMMATURE GRANULOCYTE (%) 0.5 % (0.0-0.7); LYMPHOCYTE (%) 10.8 % (15-42); LYMPHOCYTE COUNT 0.8 K/uL (1.0-2.8); MCH 28.3 PG (29.0-34.0); MCHC 30.2 G/DL (30.0-36.0); MCV 93.6 FL (83-99); MONOCYTE (%) 6.3 % (3-12); MONOCYTE COUNT 0.5 K/uL (0-0.8); NEUTROPHIL (%) 81.2 % (45-76); NEUTROPHIL COUNT 6.1 K/uL (1.8-6.4); PLATELET COUNT 210 K/uL (156-360); RBC DIS.WIDTH-CV 15.9 % (11.8-14.6); RBC DIS.WIDTH-SD 53.1 % (39-53); RED BLOOD COUNT 2.65 M/uL (3.80-5.20); WHITE BLOOD COUNT 7.6 K/uL (4.1-10.2)
[2018-03-21 06:29] LABS: ALBUMIN 2.6 G/DL (3.2-4.8); ALKALINE PHOSPHATASE 59 IU/L (3-129); ALT (GPT) 38 IU/L (3-49); AST (GOT) 40 IU/L (2-34); CHLORIDE 112 MEQ/L (99-109); CREATININE 1.2 MG/DL (0.6-1.3); GFR ESTIMATE (CALCULATED) 50 mL/min/; GLUCOSE 146 mg/dL (70-99); MAGNESIUM 1.9 mg/dl (1.3-2.7); PHOSPHORUS 5.1 mg/dL (2.5-4.9); POTASSIUM 4.1 MEQ/L (3.7-5.4); SODIUM 147 MEQ/L (136-147); TOTAL BILIRUBIN 0.5 MG/DL (0.0-1.0); TOTAL PROTEIN 6.1 G/DL (6.4-8.3); UREA NITROGEN (BUN) 67 mg/dL (9-23)
[2018-03-22] VITALS (23 sets, daily range): BP systolic 112–174; BP diastolic 64–103
[2018-03-22 04:52] LABS: BASOPHIL (%) 0.4 % (0-1); EOSINOPHIL (%) 0.4 % (0-5); HEMATOCRIT 24.1 % (36.0-46.0); HEMOGLOBIN 7.3 G/DL (11.9-15.5); IMMATURE GRANULOCYTE (%) 0.6 % (0.0-0.7); LYMPHOCYTE (%) 9.2 % (15-42); LYMPHOCYTE COUNT 0.6 K/uL (1.0-2.8); MCH 28.4 PG (29.0-34.0); MCHC 30.3 G/DL (30.0-36.0); MCV 93.8 FL (83-99); MONOCYTE (%) 4.6 % (3-12); MONOCYTE COUNT 0.3 K/uL (0-0.8); NEUTROPHIL (%) 84.8 % (45-76); NEUTROPHIL COUNT 5.9 K/uL (1.8-6.4); PLATELET COUNT 219 K/uL (156-360); RBC DIS.WIDTH-CV 15.8 % (11.8-14.6); RBC DIS.WIDTH-SD 53.2 % (39-53); RED BLOOD COUNT 2.57 M/uL (3.80-5.20)
[2018-03-22 06:08] LABS: ALBUMIN 2.5 G/DL (3.2-4.8); ALKALINE PHOSPHATASE 60 IU/L (3-129); ALT (GPT) 31 IU/L (3-49); AST (GOT) 27 IU/L (2-34); CHLORIDE 115 MEQ/L (99-109); CREATININE 1.1 MG/DL (0.6-1.3); GFR ESTIMATE (CALCULATED) 55 mL/min/; MAGNESIUM 1.8 mg/dl (1.3-2.7); PHOSPHORUS 4.8 mg/dL (2.5-4.9); POTASSIUM 4.8 MEQ/L (3.7-5.4); SODIUM 149 MEQ/L (136-147); TOTAL BILIRUBIN 0.5 MG/DL (0.0-1.0); TOTAL PROTEIN 5.8 G/DL (6.4-8.3); UREA NITROGEN (BUN) 60 mg/dL (9-23)
[2018-03-22 06:22] LABS: GLUCOSE 223 mg/dL (70-99)
[2018-03-23] VITALS (23 sets, daily range): BP systolic 114–164; BP diastolic 65–93
[2018-03-23 02:14] LABS: BASOPHIL (%) 0.3 % (0-1); EOSINOPHIL (%) 0.9 % (0-5); EOSINOPHIL COUNT 0.1 K/uL (0-0.3); HEMATOCRIT 22.9 % (36.0-46.0); IMMATURE GRANULOCYTE (%) 0.7 % (0.0-0.7); LYMPHOCYTE (%) 14.1 % (15-42); MCH 28.6 PG (29.0-34.0); MCHC 30.6 G/DL (30.0-36.0); MCV 93.5 FL (83-99); MONOCYTE (%) 6.2 % (3-12); MONOCYTE COUNT 0.4 K/uL (0-0.8); NEUTROPHIL (%) 77.8 % (45-76); NEUTROPHIL COUNT 5.4 K/uL (1.8-6.4); PLATELET COUNT 213 K/uL (156-360); RBC DIS.WIDTH-CV 15.9 % (11.8-14.6); RBC DIS.WIDTH-SD 53.8 % (39-53); RED BLOOD COUNT 2.45 M/uL (3.80-5.20); WHITE BLOOD COUNT 6.9 K/uL (4.1-10.2)
[2018-03-23 02:27] LABS: ALBUMIN 2.7 g/dL (3.2-4.8); CHLORIDE 117 mEq/L (99-109); POTASSIUM 4.2 mEq/L (3.7-5.4); SODIUM 150 mEq/L (136-147)
[2018-03-23 02:28] LABS: MAGNESIUM 1.8 mg/dL (1.3-2.7)
[2018-03-23 02:30] LABS: GLUCOSE 239 mg/dL (70-99); TOTAL PROTEIN 6.3 g/dL (6.4-8.3)
[2018-03-23 02:31] LABS: TOTAL BILIRUBIN 0.4 mg/dL (0.0-1.0)
[2018-03-23 02:33] LABS: ALKALINE PHOSPHATASE 58 IU/L (3-129); CREATININE 1.1 mg/dL (0.6-1.3); GFR ESTIMATE (CALCULATED) 55 mL/min/; PHOSPHORUS 3.9 mg/dL (2.5-4.9)
[2018-03-23 02:34] LABS: UREA NITROGEN (BUN) 58 mg/dL (9-23)
[2018-03-23 02:35] LABS: AST (GOT) 23 IU/L (2-34)
[2018-03-23 02:36] LABS: ALT (GPT) 32 IU/L (3-49)
[2018-03-23 12:32] LABS: COMMENTS - BLOOD GASES A+C+; SITE LR
[2018-03-23 12:33] LABS: DEVICE BIPAP; O2 FLOW 9 L/MIN; PCO2 51 mm Hg (35-45); PEEP 5 CM/H20; PO2 82 mm Hg (80-100); PRES. SUPPORT 10 CM/H2O; TOTAL RESP RATE 30 resp/min; pH 7.34 (7.35-7.45)
[2018-03-23 12:34] LABS: BASE EXCESS 1.4 mEq/L (-3 to +3); BICARBONATE 27.5 mEq/L (22-26); CARBOXY HGB 1.9 % (0-5); METHEMOGLOBIN 0.5 % (0-1.5)
[2018-03-24] VITALS (21 sets, daily range): BP systolic 118–166; BP diastolic 60–94
[2018-03-24 06:23] LABS: BASOPHIL (%) 0.4 % (0-1); EOSINOPHIL (%) 3.2 % (0-5); EOSINOPHIL COUNT 0.2 K/uL (0-0.3); HEMATOCRIT 24.4 % (36.0-46.0); HEMOGLOBIN 7.3 G/DL (11.9-15.5); IMMATURE GRANULOCYTE (%) 0.9 % (0.0-0.7); LYMPHOCYTE COUNT 0.9 K/uL (1.0-2.8); MCH 28.3 PG (29.0-34.0); MCHC 29.9 G/DL (30.0-36.0); MCV 94.6 FL (83-99); MONOCYTE (%) 5.8 % (3-12); MONOCYTE COUNT 0.4 K/uL (0-0.8); NEUTROPHIL (%) 77.7 % (45-76); NEUTROPHIL COUNT 5.9 K/uL (1.8-6.4); PLATELET COUNT 213 K/uL (156-360); RBC DIS.WIDTH-CV 16.4 % (11.8-14.6); RBC DIS.WIDTH-SD 56.2 % (39-53); RED BLOOD COUNT 2.58 M/uL (3.80-5.20); WHITE BLOOD COUNT 7.6 K/uL (4.1-10.2)
[2018-03-24 08:05] LABS: ALBUMIN 2.6 G/DL (3.2-4.8); ALKALINE PHOSPHATASE 52 IU/L (3-129); ALT (GPT) 27 IU/L (3-49); AST (GOT) 25 IU/L (2-34); CHLORIDE 114 MEQ/L (99-109); GFR ESTIMATE (CALCULATED) > 59 mL/min/; GLUCOSE 227 mg/dL (70-99); MAGNESIUM 1.6 mg/dl (1.3-2.7); PHOSPHORUS 4.1 mg/dL (2.5-4.9); POTASSIUM 3.9 MEQ/L (3.7-5.4); SODIUM 149 MEQ/L (136-147); TOTAL BILIRUBIN 0.4 MG/DL (0.0-1.0); TOTAL PROTEIN 5.7 G/DL (6.4-8.3); UREA NITROGEN (BUN) 53 mg/dL (9-23)
[2018-03-25] VITALS (24 sets, daily range): BP systolic 128–199; BP diastolic 59–108
[2018-03-25 08:05] LABS: ALBUMIN 2.4 G/DL (3.2-4.8); ALKALINE PHOSPHATASE 53 IU/L (3-129); ALT (GPT) 23 IU/L (3-49); AST (GOT) 23 IU/L (2-34); CHLORIDE 114 MEQ/L (99-109); CREATININE 0.9 MG/DL (0.6-1.3); GFR ESTIMATE (CALCULATED) > 59 mL/min/; GLUCOSE 198 mg/dL (70-99); MAGNESIUM 1.4 mg/dl (1.3-2.7); PHOSPHORUS 3.5 mg/dL (2.5-4.9); POTASSIUM 3.6 MEQ/L (3.7-5.4); SODIUM 150 MEQ/L (136-147); TOTAL PROTEIN 5.3 G/DL (6.4-8.3); UREA NITROGEN (BUN) 44 mg/dL (9-23)
[2018-03-25 08:08] LABS: TOTAL BILIRUBIN 0.5 MG/DL (0.0-1.0)
[2018-03-25 08:38] LABS: THYROTROPIN (TSH) 2.1 MIU/L (0.4-5.5)
[2018-03-26] VITALS (20 sets, daily range): BP systolic 124–178; BP diastolic 66–107
[2018-03-26 01:51] LABS: INTER. NORMALIZED RATIO 1.4
[2018-03-26 07:38] LABS: INTER. NORMALIZED RATIO 1.4
[2018-03-26 07:39] LABS: HEMATOCRIT 21.8 % (36.0-46.0); MCH 28.5 PG (29.0-34.0); MCHC 30.7 G/DL (30.0-36.0); MCV 92.8 FL (83-99); NRBC (%) 0.3 /100 WBC (0-0); PLATELET COUNT 189 K/uL (156-360); RBC DIS.WIDTH-CV 16.8 % (11.8-14.6); RBC DIS.WIDTH-SD 53.9 % (39-53); RED BLOOD COUNT 2.35 M/uL (3.80-5.20); WHITE BLOOD COUNT 6.2 K/uL (4.1-10.2)
[2018-03-26 07:40] LABS: HEMOGLOBIN 6.7 G/DL (11.9-15.5); PTT 78.4 SEC (25-37)
[2018-03-26 08:58] LABS: STOOL OCCULT BLD 1ST SPECIMEN POSITIVE
[2018-03-26 09:50] LABS: ALBUMIN 2.4 G/DL (3.2-4.8); ALKALINE PHOSPHATASE 56 IU/L (3-129); ALT (GPT) 23 IU/L (3-49); AST (GOT) 29 IU/L (2-34); CHLORIDE 118 MEQ/L (99-109); CREATININE 0.8 MG/DL (0.6-1.3); GFR ESTIMATE (CALCULATED) > 59 mL/min/; GLUCOSE 217 mg/dL (70-99); MAGNESIUM 1.6 mg/dl (1.3-2.7); PHOSPHORUS 3.4 mg/dL (2.5-4.9); POTASSIUM 3.9 MEQ/L (3.7-5.4); SODIUM 155 MEQ/L (136-147); TOTAL BILIRUBIN 0.5 MG/DL (0.0-1.0); TOTAL PROTEIN 5.2 G/DL (6.4-8.3); UREA NITROGEN (BUN) 32 mg/dL (9-23)
[2018-03-26 22:42] LABS: HEMOGLOBIN 8.2 G/DL (11.9-15.5); MCV 90.6 FL (83-99)
[2018-03-27 00:36] LABS: HEMATOCRIT 25.7 % (36.0-46.0); HEMOGLOBIN 8.4 G/DL (11.9-15.5); MCV 90.5 FL (83-99)
[2018-03-27 04:20] VITALS: BP 161/77
[2018-03-27 07:04] LABS: HEMATOCRIT 27.8 % (36.0-46.0); HEMOGLOBIN 8.6 G/DL (11.9-15.5); MCV 91.4 FL (83-99)
[2018-03-27 07:07] LABS: BASOPHIL (%) 0.5 % (0-1); EOSINOPHIL (%) 2.6 % (0-5); EOSINOPHIL COUNT 0.2 K/uL (0-0.3); HEMATOCRIT 27.7 % (36.0-46.0); HEMOGLOBIN 8.7 G/DL (11.9-15.5); IMMATURE GRANULOCYTE (%) 4.3 % (0.0-0.7); LYMPHOCYTE (%) 14.6 % (15-42); LYMPHOCYTE COUNT 1.1 K/uL (1.0-2.8); MCH 28.6 PG (29.0-34.0); MCHC 31.4 G/DL (30.0-36.0); MCV 91.1 FL (83-99); MONOCYTE (%) 5.2 % (3-12); MONOCYTE COUNT 0.4 K/uL (0-0.8); NEUTROPHIL (%) 72.8 % (45-76); NEUTROPHIL COUNT 5.6 K/uL (1.8-6.4); NRBC (%) 0.6 /100 WBC (0-0); PLATELET COUNT 204 K/uL (156-360); RBC DIS.WIDTH-CV 18.2 % (11.8-14.6); RBC DIS.WIDTH-SD 58.5 % (39-53); WHITE BLOOD COUNT 7.7 K/uL (4.1-10.2)
[2018-03-27 07:10] LABS: RED BLOOD COUNT 3.04 M/uL (3.80-5.20)
[2018-03-27 07:17] LABS: INTER. NORMALIZED RATIO 1.6
[2018-03-27 08:01] LABS: CHLORIDE 113 MEQ/L (99-109); CREATININE 0.8 MG/DL (0.6-1.3); GFR ESTIMATE (CALCULATED) > 59 mL/min/; GLUCOSE 190 mg/dL (70-99); MAGNESIUM 1.3 mg/dl (1.3-2.7); PHOSPHORUS 4.1 mg/dL (2.5-4.9); POTASSIUM 3.7 MEQ/L (3.7-5.4); SODIUM 151 MEQ/L (136-147); UREA NITROGEN (BUN) 28 mg/dL (9-23)
[2018-03-27 09:00] VITALS: BP 175/83
[2018-03-27 12:53] VITALS: BP 170/74
[2018-03-27 15:12] LABS: APPEARANCE CLOUDY ((CLEAR)); BILIRUBIN NEGATIVE; BLOOD LARGE; COLOR YELLOW ((YELLOW)); GLUCOSE (STRIP) 50; KETONES NEGATIVE; LEUKOCYTES TRACE; NITRITE NEGATIVE; PROTEIN (STRIP) >=500; SPECIFIC GRAVITY 1.017 (1.000-1.030); UROBILINOGEN 0.2 MG/DL (0.2-1.0)
[2018-03-27 15:52] LABS: HEMATOCRIT 27.7 % (36.0-46.0); HEMOGLOBIN 8.8 G/DL (11.9-15.5); MCV 90.8 FL (83-99)
[2018-03-27 15:57] LABS: BACTERIA 2+ /HPF; EPITHELIAL CELLS 1+ /HPF; MUCUS 1+ /LPF; UCUL ADDED? YES
[2018-03-27 16:55] VITALS: BP 142/69
[2018-03-27 19:15] VITALS: BP 142/81
[2018-03-27 23:10] VITALS: BP 139/79
[2018-03-28 00:43] LABS: HEMATOCRIT 25.9 % (36.0-46.0); HEMOGLOBIN 8.3 G/DL (11.9-15.5); MCV 90.9 FL (83-99)
[2018-03-28 04:50] VITALS: BP 133/63
[2018-03-28 05:53] LABS: HEMATOCRIT 25.3 % (36.0-46.0); HEMOGLOBIN 7.8 G/DL (11.9-15.5); MCH 28.1 PG (29.0-34.0); MCHC 30.8 G/DL (30.0-36.0); NRBC (%) 0.4 /100 WBC (0-0); PLATELET COUNT 170 K/uL (156-360); RBC DIS.WIDTH-SD 57.8 % (39-53); RED BLOOD COUNT 2.78 M/uL (3.80-5.20); WHITE BLOOD COUNT 7.3 K/uL (4.1-10.2)
[2018-03-28 05:57] LABS: INTER. NORMALIZED RATIO 1.7
[2018-03-28 06:00] LABS: PTT 94.4 SEC (25-37)
[2018-03-28 07:09] LABS: CHLORIDE 107 MEQ/L (99-109); CREATININE 0.7 MG/DL (0.6-1.3); GFR ESTIMATE (CALCULATED) > 59 mL/min/; GLUCOSE 203 mg/dL (70-99); POTASSIUM 3.5 MEQ/L (3.7-5.4); SODIUM 145 MEQ/L (136-147); UREA NITROGEN (BUN) 24 mg/dL (9-23)
[2018-03-28 08:06] LABS: FOLIC ACID (FOLATE) 18.7 NG/ML (5.0-22.0)
[2018-03-28 09:15] VITALS: BP 191/88
[2018-03-28 11:35] VITALS: BP 140/65
[2018-03-28 15:58] VITALS: BP 161/83
[2018-03-28 20:20] VITALS: BP 164/74
[2018-03-29] VITALS (7 sets, daily range): BP systolic 126–153; BP diastolic 63–80
[2018-03-29 05:23] LABS: HEMATOCRIT 25.3 % (36.0-46.0); HEMOGLOBIN 7.9 G/DL (11.9-15.5); MCH 28.9 PG (29.0-34.0); MCHC 31.2 G/DL (30.0-36.0); MCV 92.7 FL (83-99); NRBC (%) 0.3 /100 WBC (0-0); PLATELET COUNT 148 K/uL (156-360); RBC DIS.WIDTH-CV 18.2 % (11.8-14.6); RBC DIS.WIDTH-SD 58.8 % (39-53); RED BLOOD COUNT 2.73 M/uL (3.80-5.20); WHITE BLOOD COUNT 7.2 K/uL (4.1-10.2)
[2018-03-29 05:40] LABS: INTER. NORMALIZED RATIO 1.8
[2018-03-29 06:16] LABS: CHLORIDE 107 MEQ/L (99-109); CREATININE 0.8 MG/DL (0.6-1.3); GFR ESTIMATE (CALCULATED) > 59 mL/min/; GLUCOSE 140 mg/dL (70-99); POTASSIUM 3.9 MEQ/L (3.7-5.4); SODIUM 145 MEQ/L (136-147); UREA NITROGEN (BUN) 25 mg/dL (9-23)
[2018-03-30 04:20] VITALS: BP 151/71
[2018-03-30 06:06] LABS: HEMATOCRIT 26.4 % (36.0-46.0); HEMOGLOBIN 8.4 G/DL (11.9-15.5); MCH 28.9 PG (29.0-34.0); MCHC 31.8 G/DL (30.0-36.0); MCV 90.7 FL (83-99); PLATELET COUNT 162 K/uL (156-360); RBC DIS.WIDTH-CV 17.7 % (11.8-14.6); RED BLOOD COUNT 2.91 M/uL (3.80-5.20); WHITE BLOOD COUNT 6.8 K/uL (4.1-10.2)
[2018-03-30 06:38] LABS: CHLORIDE 105 MEQ/L (99-109); CREATININE 0.7 MG/DL (0.6-1.3); GFR ESTIMATE (CALCULATED) > 59 mL/min/; GLUCOSE 146 mg/dL (70-99); POTASSIUM 3.6 MEQ/L (3.7-5.4); SODIUM 143 MEQ/L (136-147); UREA NITROGEN (BUN) 23 mg/dL (9-23)
[2018-03-30 06:56] VITALS: BP 137/68
[2018-03-30] MEDS ORDERED: QUETIAPINE FUMA25 MG PO (11:00)
[2018-03-30] MEDS ORDERED: ROCEPHIN 2 GM VI2 GM IM (11:14)
[2018-03-30 12:08] VITALS: BP 126/91
[2018-03-30] MEDS ORDERED: HEPARIN SO5000 UNIT4 SC (12:56)
[2018-03-30] MEDS ORDERED: ROCEPHIN 2 GM VI2 GM IV (14:59)
== END 2018-03-30 17:41 | DRG 870 ==
LOC: EME → EDBD 22:08 → EME 22:08 → 4WEST 03-04 01:55 → EDOF 03-04 01:55 → 4EAST 03-04 01:55 → ENRESERV 03-04 01:57 → 4EAST 03-04 03:35 → ENRESERV 03-05 11:23 → 4WEST 03-05 11:42 → ENRESERV 03-26 05:17 → 4EAST 03-26 06:25
PROVIDERS: Emergency Medicine; Internal Medicine; Internal Medicine Critical Care Medicine; Internal Medicine Nephrology; Obstetrics & Gynecology; Surgery
PROC: 0J9N0ZX Drainage of Right Lower Leg Subcutaneous Tissue and Fascia, Open Approach, Diagnostic (ICD-10-PCS; principal; 2018-03-05)
PROC: 0BH18EZ Insertion of Endotracheal Airway into Trachea, Via Natural or Artificial Opening Endoscopic (ICD-10-PCS; principal; 2018-03-05)
PROC: 5A1955Z Respiratory Ventilation, Greater than 96 Consecutive Hours (ICD-10-PCS; principal; 2018-03-05)
PROC: 30233K1 Transfusion of Nonautologous Frozen Plasma into Peripheral Vein, Percutaneous Approach (ICD-10-PCS; principal; 2018-03-05)
PROC: B543ZZA Ultrasonography of Right Jugular Veins, Guidance (ICD-10-PCS; 2018-03-06)
PROC: 02HV33Z Insertion of Infusion Device into Superior Vena Cava, Percutaneous Approach (ICD-10-PCS; 2018-03-06)
PROC: 03HY32Z Insertion of Monitoring Device into Upper Artery, Percutaneous Approach (ICD-10-PCS; 2018-03-06)
PROC: 5A09357 Assistance with Respiratory Ventilation, Less than 24 Consecutive Hours, Continuous Positive Airway Pressure (ICD-10-PCS; 2018-03-23)
PROC: 30233N1 Transfusion of Nonautologous Red Blood Cells into Peripheral Vein, Percutaneous Approach (ICD-10-PCS; 2018-03-26)
DX: A40.8 Other streptococcal sepsis (principal); R65.21 Severe sepsis with septic shock; A48.3 Toxic shock syndrome; N17.0 Acute kidney failure with tubular necrosis; L03.115 Cellulitis of right lower limb; I50.21 Acute systolic (congestive) heart failure; L02.415 Cutaneous abscess of right lower limb; J96.01 Acute respiratory failure with hypoxia; J44.0 Chronic obstructive pulmonary disease with (acute) lower respiratory infection; J18.9 Pneumonia, unspecified organism; G47.33 Obstructive sleep apnea (adult) (pediatric); G89.4 Chronic pain syndrome; M79.7 Fibromyalgia; Z79.4 Long term (current) use of insulin; E87.2 Acidosis; E87.1 Hypo-osmolality and hyponatremia; I27.20 Pulmonary hypertension, unspecified; M32.9 Systemic lupus erythematosus, unspecified; K51.90 Ulcerative colitis, unspecified, without complications; G93.41 Metabolic encephalopathy; E66.01 Morbid (severe) obesity due to excess calories; E11.621 Type 2 diabetes mellitus with foot ulcer; L97.518 Non-pressure chronic ulcer of other part of right foot with other specified severity; E11.21 Type 2 diabetes mellitus with diabetic nephropathy; E11.42 Type 2 diabetes mellitus with diabetic polyneuropathy; Z68.44 Body mass index [BMI] 60.0-69.9, adult; E78.5 Hyperlipidemia, unspecified; I82.441 Acute embolism and thrombosis of right tibial vein; I87.2 Venous insufficiency (chronic) (peripheral); Z89.429 Acquired absence of other toe(s), unspecified side; T45.515A Adverse effect of anticoagulants, initial encounter; D69.6 Thrombocytopenia, unspecified; L02.224 Furuncle of groin; N18.3 Chronic kidney disease, stage 3 (moderate); E11.22 Type 2 diabetes mellitus with diabetic chronic kidney disease; E11.65 Type 2 diabetes mellitus with hyperglycemia; E28.2 Polycystic ovarian syndrome; E86.0 Dehydration; R79.1 Abnormal coagulation profile; E87.0 Hyperosmolality and hypernatremia; D50.0 Iron deficiency anemia secondary to blood loss (chronic); D63.1 Anemia in chronic kidney disease; J45.901 Unspecified asthma with (acute) exacerbation; E06.3 Autoimmune thyroiditis; K21.9 Gastro-esophageal reflux disease without esophagitis; K51.911 Ulcerative colitis, unspecified with rectal bleeding; I12.9 Hypertensive chronic kidney disease with stage 1 through stage 4 chronic kidney disease, or unspecified chronic kidney disease
CPT/HCPCS: 36600; 71045; 71046; 71250; 73700; 74176; 80048; 80048 91; 80053; 80200; 80202; 81003; 82010; 82272; 82550; 82550 91; 82565; 82570; 82607; 82746; 82803; 82948; 83605; 83735; 83880; 84100; 84134; 84145 90; 84300; 84443; 84478; 84484; 85014; 85018; 85025; 85025 91; 85027; 85610; 85651; 85730; 86022 90; 86140; 86141; 86850; 86900; 86901; 86920; 87040; 87070; 87075; 87077; 87086; 87106; 87205; 87493; 87641; 87801; 92526 GN; 92610 GN; 93005; 93971; 94002; 94003; 94640; 94640 76; 94660; 94760; 94799; 97530 GO; 97530 GP; 99202; 99281; 99284; A6021; A6212; A6214; C1751; C1753; J0330; J0692; J0696; J0881; J1205; J1630; J1815; J1940; J1956; J2248; J2250; J2405; J2704; J3010; J3370; J3475; J7030; J7042; J7050; J7070; J7120; P9016; P9017; P9047; S0028; S0030